=== PATIENT | male | born 1950 | race African-American/Black ===

== ENCOUNTER → 2016-05-14 | Outpatient (CLI) | payer MEDICARE, OTHER ==
[2016-05-14 12:08] LABS: HEMATOCRIT 29.4 % (37.9-51.0); HGB HCT DIFFERENCE 0.6; MEAN CORPUSCULAR HEMOGLOBIN 33.4 pg (27.0-33.4); MEAN CORPUSCULAR VOLUME 98 fl (80-97); RED BLOOD COUNT 2.99 10^6/uL (4.35-5.55); RED CELL DISTRIBUTION WIDTH 15.8 % (11.5-14.0)
[2016-05-14 12:42] LABS: APPEARANCE,URINE CLEAR; BILIRUBIN,URINE NEGATIVE (NEGATIVE); GLUCOSE, URINE NEGATIVE (NEGATIVE); KETONES,URINE NEGATIVE (NEGATIVE); LEUKOCYTE ESTERASE,URINE NEGATIVE (NEGATIVE); NITRITE,URINE NEGATIVE (NEGATIVE); PROTEIN,URINE NEGATIVE (NEGATIVE); URINE SPECIFIC GRAVITY 1.013; UROBILINOGEN,URINE NEGATIVE mg/dL (<2.0)
[2016-05-14 12:46] LABS: ANION GAP 14 (5-19); BLOOD UREA NITROGEN 33 mg/dL (7-20); CALCIUM 8.6 mg/dL (8.4-10.2); CARBON DIOXIDE 27 mmol/L (22-30); CHLORIDE 105 mmol/L (98-107); GLUCOSE 86 mg/dL (75-110); POTASSIUM 4.7 mmol/L (3.6-5.0); SODIUM 145.6 mmol/L (137-145)
== END ==
LOC: OD 10:22
PROVIDERS: ATTEND Internal Medicine Nephrology
DX: I12.9 Hypertensive chronic kidney disease with stage 1 through stage 4 chronic kidney disease, or unspecified chronic kidney disease (principal); N18.4 Chronic kidney disease, stage 4 (severe); D64.9 Anemia, unspecified
CPT/HCPCS: 36415; 80048; 81001; 83970; 84100; 85027

== ENCOUNTER → 2016-10-15 | Outpatient (CLI) | payer MEDICARE, OTHER ==
[2016-10-15 11:02] LABS: APPEARANCE,URINE CLEAR; BILIRUBIN,URINE NEGATIVE (NEGATIVE); GLUCOSE, URINE NEGATIVE (NEGATIVE); KETONES,URINE NEGATIVE (NEGATIVE); LEUKOCYTE ESTERASE,URINE NEGATIVE (NEGATIVE); NITRITE,URINE NEGATIVE (NEGATIVE); PROTEIN,URINE NEGATIVE (NEGATIVE); URINE SPECIFIC GRAVITY 1.011; UROBILINOGEN,URINE NEGATIVE mg/dL (<2.0)
[2016-10-15 11:03] LABS: HEMATOCRIT 27.1 % (37.9-51.0); HEMOGLOBIN 9.1 g/dL (13.5-17.0); HGB HCT DIFFERENCE 0.2; MEAN CORPUSCULAR HEMOGLOBIN 33.8 pg (27.0-33.4); MEAN CORPUSCULAR HGB CONC 33.5 g/dL (32.0-36.0); MEAN CORPUSCULAR VOLUME 101 fl (80-97); RED BLOOD COUNT 2.68 10^6/uL (4.35-5.55); RED CELL DISTRIBUTION WIDTH 15.9 % (11.5-14.0); WHITE BLOOD COUNT 7.6 10^3/uL (4.0-10.5)
[2016-10-15 11:14] LABS: ANION GAP 13 (5-19); BLOOD UREA NITROGEN 36 mg/dL (7-20); CALCIUM 9.2 mg/dL (8.4-10.2); CARBON DIOXIDE 20 mmol/L (22-30); CHLORIDE 110 mmol/L (98-107); CREATININE RESULT 2.67 mg/dL (0.52-1.25); GLUCOSE 93 mg/dL (75-110); SODIUM 143.3 mmol/L (137-145)
[2016-10-16 09:47] LABS: PTH INTACT 71 pg/mL (15-65)
[2016-10-17 16:39] LABS: ALBUMIN 2 3.7 g/dL (2.9-4.4); ALPHA-1-GLOBULIN 2 0.2 g/dL (0.0-0.4); GAMMA GLOBULIN 1.9 g/dL (0.4-1.8); PROTEIN TOTAL SERUM 7.4 g/dL (6.0-8.5)
== END ==
LOC: OD 09:44
PROVIDERS: ATTEND Internal Medicine Nephrology
DX: D64.9 Anemia, unspecified (principal); N18.4 Chronic kidney disease, stage 4 (severe); E87.5 Hyperkalemia
CPT/HCPCS: 36415; 80048; 81001; 82728; 83540; 83550; 83970; 84100; 84165; 85027

== ENCOUNTER → 2017-01-28 | Outpatient (CLI) | payer MEDICARE, OTHER ==
[2017-01-28 10:13] LABS: HEMATOCRIT 27.7 % (37.9-51.0); HEMOGLOBIN 9.6 g/dL (13.5-17.0); HGB HCT DIFFERENCE 1.1; MEAN CORPUSCULAR HEMOGLOBIN 35.2 pg (27.0-33.4); MEAN CORPUSCULAR HGB CONC 34.6 g/dL (32.0-36.0); MEAN CORPUSCULAR VOLUME 102 fl (80-97); RED BLOOD COUNT 2.73 10^6/uL (4.35-5.55); RED CELL DISTRIBUTION WIDTH 16.3 % (11.5-14.0); WHITE BLOOD COUNT 8.5 10^3/uL (4.0-10.5)
[2017-01-28 10:39] LABS: ANION GAP 19 (5-19); BLOOD UREA NITROGEN 37 mg/dL (7-20); CALCIUM 8.7 mg/dL (8.4-10.2); CARBON DIOXIDE 17 mmol/L (22-30); CHLORIDE 110 mmol/L (98-107); CREATININE RESULT 2.68 mg/dL (0.52-1.25); GLUCOSE 105 mg/dL (75-110); PHOSPHORUS 2.8 mg/dL (2.5-4.5); POTASSIUM 4.6 mmol/L (3.6-5.0); SODIUM 145.8 mmol/L (137-145)
== END ==
LOC: OD 09:21
PROVIDERS: ATTEND Internal Medicine Nephrology
DX: I12.9 Hypertensive chronic kidney disease with stage 1 through stage 4 chronic kidney disease, or unspecified chronic kidney disease (principal); N18.4 Chronic kidney disease, stage 4 (severe); D64.9 Anemia, unspecified; E87.5 Hyperkalemia
CPT/HCPCS: 36415; 80048; 83970; 84100; 85027

== ENCOUNTER → 2017-02-15 | Outpatient (CLI) | payer MEDICARE, OTHER ==
[2017-02-15 12:37] LABS: HEMATOCRIT 25.6 % (37.9-51.0); HGB HCT DIFFERENCE 1.4; MEAN CORPUSCULAR HEMOGLOBIN 35.9 pg (27.0-33.4); MEAN CORPUSCULAR HGB CONC 35.3 g/dL (32.0-36.0); MEAN CORPUSCULAR VOLUME 102 fl (80-97); RED BLOOD COUNT 2.52 10^6/uL (4.35-5.55); RED CELL DISTRIBUTION WIDTH 16.3 % (11.5-14.0); WHITE BLOOD COUNT 7.2 10^3/uL (4.0-10.5)
== END ==
LOC: OD 11:41
PROVIDERS: ATTEND Internal Medicine Nephrology
DX: N18.4 Chronic kidney disease, stage 4 (severe) (principal); D64.9 Anemia, unspecified
CPT/HCPCS: 36415; 82728; 83540; 83550; 85027

== ENCOUNTER → 2017-04-09 | Outpatient (CLI) | payer MEDICARE, OTHER ==
[2017-04-09 13:35] LABS: HEMATOCRIT 28.1 % (37.9-51.0); HEMOGLOBIN 9.9 g/dL (13.5-17.0); MEAN CORPUSCULAR HEMOGLOBIN 36.4 pg (27.0-33.4); MEAN CORPUSCULAR HGB CONC 35.2 g/dL (32.0-36.0); MEAN CORPUSCULAR VOLUME 103 fl (80-97); PLATELET COUNT 384 10^3/uL (150-450); RED BLOOD COUNT 2.72 10^6/uL (4.35-5.55); WHITE BLOOD COUNT 5.9 10^3/uL (4.0-10.5)
[2017-04-09 13:50] LABS: ANION GAP 11 (5-19); BLOOD UREA NITROGEN 28 mg/dL (7-20); CALCIUM 9.2 mg/dL (8.4-10.2); CARBON DIOXIDE 27 mmol/L (22-30); CHLORIDE 112 mmol/L (98-107); GLUCOSE 93 mg/dL (75-110); IRON(TIBC) 122.2 ug/dL (49-181); POTASSIUM 4.7 mmol/L (3.6-5.0); SODIUM 150.3 mmol/L (137-145)
== END ==
LOC: OD 13:02
PROVIDERS: ATTEND Internal Medicine Nephrology
DX: I12.9 Hypertensive chronic kidney disease with stage 1 through stage 4 chronic kidney disease, or unspecified chronic kidney disease (principal); N18.3 Chronic kidney disease, stage 3 (moderate); D64.9 Anemia, unspecified; E87.5 Hyperkalemia
CPT/HCPCS: 36415; 80048; 82728; 83540; 83550; 83970; 84100; 85027

== ENCOUNTER → 2017-06-19 | Outpatient (CLI) | payer MEDICARE, OTHER ==
[2017-06-19 11:05] LABS: HEMATOCRIT 26.8 % (37.9-51.0); HEMOGLOBIN 9.3 g/dL (13.5-17.0); MEAN CORPUSCULAR HEMOGLOBIN 35.9 pg (27.0-33.4); MEAN CORPUSCULAR HGB CONC 34.7 g/dL (32.0-36.0); MEAN CORPUSCULAR VOLUME 104 fl (80-97); PLATELET COUNT 423 10^3/uL (150-450); RED BLOOD COUNT 2.58 10^6/uL (4.35-5.55); RED CELL DISTRIBUTION WIDTH 15.9 % (11.5-14.0); WHITE BLOOD COUNT 6.8 10^3/uL (4.0-10.5)
[2017-06-19 11:23] LABS: ANION GAP 13 (5-19); BLOOD UREA NITROGEN 22 mg/dL (7-20); CARBON DIOXIDE 23 mmol/L (22-30); CHLORIDE 107 mmol/L (98-107); GLUCOSE 92 mg/dL (75-110); PHOSPHORUS 2.6 mg/dL (2.5-4.5); POTASSIUM 5.1 mmol/L (3.6-5.0); SODIUM 143.4 mmol/L (137-145)
== END ==
LOC: OD 10:02
PROVIDERS: ATTEND Internal Medicine Nephrology
DX: I12.9 Hypertensive chronic kidney disease with stage 1 through stage 4 chronic kidney disease, or unspecified chronic kidney disease (principal); N18.4 Chronic kidney disease, stage 4 (severe); E87.5 Hyperkalemia; D64.9 Anemia, unspecified
CPT/HCPCS: 36415; 80048; 83970; 84100; 85027

== ENCOUNTER → 2017-07-08 | Outpatient (CLI) | payer MEDICARE, OTHER ==
[2017-07-08 11:45] LABS: HEMATOCRIT 25.5 % (37.9-51.0); HEMOGLOBIN 8.7 g/dL (13.5-17.0); MEAN CORPUSCULAR HEMOGLOBIN 35.1 pg (27.0-33.4); MEAN CORPUSCULAR HGB CONC 33.9 g/dL (32.0-36.0); MEAN CORPUSCULAR VOLUME 103 fl (80-97); PLATELET COUNT 311 10^3/uL (150-450); RED BLOOD COUNT 2.47 10^6/uL (4.35-5.55); RED CELL DISTRIBUTION WIDTH 16.4 % (11.5-14.0)
[2017-07-08 12:11] LABS: IRON(TIBC) 74.4 ug/dL (49-181)
== END ==
LOC: OD 10:52
PROVIDERS: ATTEND Internal Medicine Nephrology
DX: D64.9 Anemia, unspecified (principal); N18.4 Chronic kidney disease, stage 4 (severe)
CPT/HCPCS: 36415; 82728; 83540; 83550; 85027

== ENCOUNTER → 2017-08-14 | Outpatient (CLI) | payer MEDICARE, OTHER ==
[2017-08-14 11:15] LABS: HEMATOCRIT 25.2 % (37.9-51.0); HEMOGLOBIN 8.7 g/dL (13.5-17.0); MEAN CORPUSCULAR HGB CONC 34.4 g/dL (32.0-36.0); MEAN CORPUSCULAR VOLUME 102 fl (80-97); PLATELET COUNT 367 10^3/uL (150-450); RED BLOOD COUNT 2.49 10^6/uL (4.35-5.55); RED CELL DISTRIBUTION WIDTH 16.1 % (11.5-14.0); WHITE BLOOD COUNT 6.8 10^3/uL (4.0-10.5)
[2017-08-14 11:29] LABS: APPEARANCE,URINE CLEAR; BILIRUBIN,URINE NEGATIVE (NEGATIVE); COLOR,URINE YELLOW; GLUCOSE, URINE NEGATIVE (NEGATIVE); KETONES,URINE NEGATIVE (NEGATIVE); LEUKOCYTE ESTERASE,URINE NEGATIVE (NEGATIVE); NITRITE,URINE NEGATIVE (NEGATIVE); PROTEIN,URINE NEGATIVE (NEGATIVE); URINE SPECIFIC GRAVITY 1.013
[2017-08-14 11:45] LABS: ANION GAP 12 (5-19); BLOOD UREA NITROGEN 34 mg/dL (7-20); CALCIUM 9.3 mg/dL (8.4-10.2); CARBON DIOXIDE 25 mmol/L (22-30); CHLORIDE 111 mmol/L (98-107); GLUCOSE 98 mg/dL (75-110); IRON(TIBC) 116.8 ug/dL (49-181); PHOSPHORUS 2.8 mg/dL (2.5-4.5); POTASSIUM 4.7 mmol/L (3.6-5.0); SODIUM 148.2 mmol/L (137-145)
[2017-08-14 12:09] LABS: UR PRO/CREAT RATIO RESULT 0.2 mg/mg (0.0-0.2); URINE CREATININE 118.5 mg/dL (22-328); URINE PROTEIN 27.1 mg/dL (<12)
== END ==
LOC: OD 10:40
PROVIDERS: ATTEND Internal Medicine Nephrology
DX: E87.5 Hyperkalemia (principal); D64.9 Anemia, unspecified; I12.9 Hypertensive chronic kidney disease with stage 1 through stage 4 chronic kidney disease, or unspecified chronic kidney disease; N18.3 Chronic kidney disease, stage 3 (moderate)
CPT/HCPCS: 36415; 80048; 81001; 82570; 82728; 83540; 83550; 83970; 84100; 84156; 85027

== ENCOUNTER → 2017-11-15 | Outpatient (CLI) | payer MEDICARE, OTHER ==
[2017-11-15 10:06] LABS: HEMATOCRIT 21.8 % (37.9-51.0); MEAN CORPUSCULAR HEMOGLOBIN 35.2 pg (27.0-33.4); MEAN CORPUSCULAR HGB CONC 34.9 g/dL (32.0-36.0); MEAN CORPUSCULAR VOLUME 101 fl (80-97); PLATELET COUNT 386 10^3/uL (150-450); RED BLOOD COUNT 2.16 10^6/uL (4.35-5.55); RED CELL DISTRIBUTION WIDTH 17.5 % (11.5-14.0); WHITE BLOOD COUNT 6.4 10^3/uL (4.0-10.5)
[2017-11-15 10:11] LABS: APPEARANCE,URINE CLEAR; BILIRUBIN,URINE NEGATIVE (NEGATIVE); COLOR,URINE STRAW; GLUCOSE, URINE NEGATIVE (NEGATIVE); KETONES,URINE NEGATIVE (NEGATIVE); LEUKOCYTE ESTERASE,URINE NEGATIVE (NEGATIVE); NITRITE,URINE NEGATIVE (NEGATIVE); PROTEIN,URINE NEGATIVE (NEGATIVE); URINE SPECIFIC GRAVITY 1.011; UROBILINOGEN,URINE NEGATIVE mg/dL (<2.0)
[2017-11-15 10:22] LABS: HEMOGLOBIN 7.6 g/dL (13.5-17.0)
[2017-11-15 10:39] LABS: ANION GAP 14 (5-19); BLOOD UREA NITROGEN 24 mg/dL (7-20); CALCIUM 8.8 mg/dL (8.4-10.2); CARBON DIOXIDE 21 mmol/L (22-30); CHLORIDE 110 mmol/L (98-107); GLUCOSE 91 mg/dL (75-110); POTASSIUM 4.8 mmol/L (3.6-5.0); SODIUM 144.9 mmol/L (137-145)
== END ==
LOC: OD 09:07
PROVIDERS: ATTEND Physician Assistant Medical
DX: I12.9 Hypertensive chronic kidney disease with stage 1 through stage 4 chronic kidney disease, or unspecified chronic kidney disease (principal); N18.4 Chronic kidney disease, stage 4 (severe); N25.0 Renal osteodystrophy; D64.9 Anemia, unspecified
CPT/HCPCS: 36415; 80048; 81001; 85027

== ENCOUNTER → 2017-12-04 | Outpatient (CLI) | payer MEDICARE, OTHER ==
[2017-12-04 15:34] LABS: HEMATOCRIT 21.7 % (37.9-51.0); MEAN CORPUSCULAR HEMOGLOBIN 35.5 pg (27.0-33.4); MEAN CORPUSCULAR HGB CONC 34.6 g/dL (32.0-36.0); MEAN CORPUSCULAR VOLUME 103 fl (80-97); PLATELET COUNT 413 10^3/uL (150-450); RED BLOOD COUNT 2.12 10^6/uL (4.35-5.55); RED CELL DISTRIBUTION WIDTH 17.2 % (11.5-14.0); WHITE BLOOD COUNT 7.4 10^3/uL (4.0-10.5)
[2017-12-04 15:50] LABS: IRON(TIBC) 96.8 ug/dL (49-181)
[2017-12-04 16:15] LABS: HEMOGLOBIN 7.5 g/dL (13.5-17.0)
== END ==
LOC: OD 14:23
PROVIDERS: ATTEND Physician Assistant Medical
DX: N18.4 Chronic kidney disease, stage 4 (severe) (principal); D64.9 Anemia, unspecified; E87.5 Hyperkalemia
CPT/HCPCS: 36415; 82728; 83540; 83550; 85027

== ENCOUNTER → 2018-01-14 | Outpatient (CLI) | payer MEDICARE, OTHER ==
[2018-01-14 12:25] LABS: ANION GAP 9 (5-19); BLOOD UREA NITROGEN 17 mg/dL (7-20); CALCIUM 8.9 mg/dL (8.4-10.2); CARBON DIOXIDE 25 mmol/L (22-30); CHLORIDE 109 mmol/L (98-107); GLUCOSE 87 mg/dL (75-110); PHOSPHORUS 2.3 mg/dL (2.5-4.5); POTASSIUM 4.2 mmol/L (3.6-5.0); SODIUM 143.3 mmol/L (137-145)
[2018-01-14 12:43] LABS: APPEARANCE,URINE CLEAR; COLOR,URINE LIGHT YELLOW
[2018-01-14 12:44] LABS: ADD MANUAL MICROSCOPIC YES; BILIRUBIN,URINE NEGATIVE (NEGATIVE); GLUCOSE, URINE NEGATIVE (NEGATIVE); KETONES,URINE NEGATIVE (NEGATIVE); LEUKOCYTE ESTERASE,URINE NEGATIVE (NEGATIVE); NITRITE,URINE NEGATIVE (NEGATIVE); PROTEIN,URINE 30 mg/dL (NEGATIVE); UROBILINOGEN,URINE NEGATIVE mg/dL (<2.0)
[2018-01-14 12:45] LABS: BACTERIA,URINE TRACE /HPF
[2018-01-14 15:40] LABS: MEAN CORPUSCULAR HEMOGLOBIN 36.2 pg (27.0-33.4); MEAN CORPUSCULAR HGB CONC 35.1 g/dL (32.0-36.0); MEAN CORPUSCULAR VOLUME 103 fl (80-97); PLATELET COUNT 384 10^3/uL (150-450); RED BLOOD COUNT 2.03 10^6/uL (4.35-5.55); RED CELL DISTRIBUTION WIDTH 18.2 % (11.5-14.0); WHITE BLOOD COUNT 8.6 10^3/uL (4.0-10.5)
[2018-01-14 15:42] LABS: HEMOGLOBIN 7.4 g/dL (13.5-17.0)
== END ==
LOC: OD 11:12
PROVIDERS: ATTEND Physician Assistant Medical
DX: I12.9 Hypertensive chronic kidney disease with stage 1 through stage 4 chronic kidney disease, or unspecified chronic kidney disease (principal); N18.4 Chronic kidney disease, stage 4 (severe); D64.9 Anemia, unspecified; E87.5 Hyperkalemia
CPT/HCPCS: 36415; 80048; 81001; 83970; 84100; 85025; 85027

== ENCOUNTER 2018-07-29 17:09 | Emergency (ER) | payer MEDICARE ==
[2018-07-29] MEDS ORDERED: NORMAL SALINE 250 ML IV PRN (18:18)
--- NOTE | 2018-07-29 18:23 | ER Document Report ---
ED Medical Screen (RME) - General Chief Complaint: Abnormal Lab Results Stated Complaint: ABNORMAL LABS Time Seen by Provider: 07/29/18 17:57 Primary Care Provider: ARNIE RUTLEDGE PA-C [Primary Care Provider] - Follow up as needed Mode of Arrival: Ambulatory Information source: Patient TRAVEL OUTSIDE OF THE [place] IN LAST 30 DAYS: No - HPI Patient complains to provider of: LOW HEMOGLOBIN Notes: 07/29/18 18:19 Patient is here with complaints of low hemoglobin. The patient has a history of chronic renal failure. He is not on dialysis. No history of congestive heart failure. He has a history of anemia. He had labs drawn today and was noted to have a hemoglobin of 6 and was told to come to the emergency department for evaluation. The patient denies any active bleeding. In reviewing his records, the patient typically has a hemoglobin about 7-1/2. He denies any chest pain, shortness of breath, dizziness, syncope. He states that he feels completely fine at this time. Exam Nontoxic-appearing, no distress. Lungs clear and equal throughout. Heart sounds normal. Plan Patient has lab work in the system from earlier today. I have ordered a type and screen, 2 units, transfuse. Case discussed with Dr. Escalona who agrees with plan. An initial examination was made on the patient as part of the triage process, and it was determined a more comprehensive evaluation was necessary. Initial labs were ordered and patient was transferred to another provider in the ED who assumed care and finished evaluation and plan. - Related Data Allergies/Adverse Reactions: No Known Allergies Allergy (Verified 10/05/12 17:24) Past Medical History - Past Medical History Cardiac Medical History: Reports: Hx Hypertension Renal/ Medical History: Denies: Hx Peritoneal Dialysis Past Surgical History: Reports: Hx Cholecystectomy Physical Exam - Vital signs Vitals: Temp Pulse Resp BP Pulse Ox 98.5 F 79 16 133/75 H 95 07/29/18 17:13 07/29/18 17:13 07/29/18 17:13 07/29/18 17:13 07/29/18 17:13 Course - Vital Signs Vital signs: Temp Pulse Resp BP Pulse Ox 98.5 F 79 16 133/75 H 95 07/29/18 17:13 07/29/18 17:13 07/29/18 17:13 07/29/18 17:13 07/29/18 17:13 Doctor's Discharge - Discharge Referrals: ARNIE RUTLEDGE PA-C [Primary Care Provider] - Follow up as needed
[2018-07-29 19:22] LABS: ABSOLUTE BASOPHILS # (AUTO) 0.1 10^3/uL (0.0-0.2); ABSOLUTE EOSINOPHILS # (AUTO) 0.2 10^3/uL (0.0-0.6); ABSOLUTE LYMPHOCYTES (AUTO) 3.4 10^3/uL (0.5-4.7); ABSOLUTE MONOCYTES (AUTO) 0.7 10^3/uL (0.1-1.4); ABSOLUTE NEUT (AUTO) 3.7 10^3/uL (1.7-8.2); EOSINOPHILS % (AUTO) 2.5 % (0-6); HEMATOCRIT 17.8 % (37.9-51.0); LYMPHOCYTES % (AUTO) 41.7 % (13-45); MEAN CORPUSCULAR HEMOGLOBIN 34.6 pg (27.0-33.4); MEAN CORPUSCULAR HGB CONC 34.6 g/dL (32.0-36.0); MEAN CORPUSCULAR VOLUME 100 fl (80-97); MONOCYTES % (AUTO) 8.6 % (3-13); PLATELET COUNT 400 10^3/uL (150-450); RED BLOOD COUNT 1.78 10^6/uL (4.35-5.55); RED CELL DISTRIBUTION WIDTH 29.1 % (11.5-14.0); SEGMENTED NEUTROPHILS % (AUTO) 46.2 % (42-78); TOTAL CELLS COUNTED % (AUTO) 100 %; WHITE BLOOD COUNT 8.1 10^3/uL (4.0-10.5)
[2018-07-29 19:25] LABS: HEMOGLOBIN 6.2 g/dL (13.5-17.0)
[2018-07-29 19:38] LABS: ANISOCYTOSIS 4+; OVALOCYTES SLIGHT; PLATELET COMMENT ADEQUATE; POIKILOCYTOSIS 1+; TARGET CELLS SLIGHT; TEAR DROP CELLS 1+
[2018-07-29 19:40] LABS: ANION GAP 9 (5-19); BLOOD UREA NITROGEN 32 mg/dL (7-20); CARBON DIOXIDE 22 mmol/L (22-30); CHLORIDE 108 mmol/L (98-107); GLUCOSE 86 mg/dL (75-110)
--- NOTE | 2018-07-29 19:51 | ER Document Report ---
ED General - General Chief Complaint: Abnormal Lab Results Stated Complaint: ABNORMAL LABS Time Seen by Provider: 07/29/18 17:57 Primary Care Provider: ARNIE RUTLEDGE PA-C [Primary Care Provider] - Follow up as needed Mode of Arrival: Ambulatory TRAVEL OUTSIDE OF THE [place] IN LAST 30 DAYS: No - HPI Notes: Patient is a 68-year-old male that presents to the emergency department for chief complaint of anemia. Patient has history of anemia from chronic renal insufficiency. He does see Dr. Hoff for his kidney failure. He is not currently on dialysis. Patient denies any black or bloody stools or history of bleeding. He denies ever requiring a blood transfusion in the past. He does get routine blood test to monitor his anemia and was told to come to the emergency room today for hemoglobin of 6. Patient denies any associated headache, vision changes, lightheadedness, palpitations, shortness of breath and syncope. He is in agreement with rec eiving blood transfusion. Patient currently states he is asymptomatic and feels normal. Past Medical History: CKD anemia of chronic disease Past Surgical History: Reviewed in chart Social History: Denies tobacco and alcohol use Family History: Reviewed and noncontributory for presenting illness Allergies: Reviewed, see documented allergy list. REVIEW OF SYSTEMS: CONSTITUTIONAL : No fever No chills No diaphoresis No recent illness EENT: No vision changes No congestion No sore throat CARDIOVASCULAR: No chest pain No palpitations RESPIRATORY: No shortness of breath No cough No difficulty breathing GASTROINTESTINAL: No abdominal pain No nausea No vomiting No diarrhea GENITOURINARY: No dysuria No hematuria No difficulty urinating MUSCULOSKELETAL: No back pain No leg pain No arm pain SKIN: No rashes No lesions LYMPHATIC: No swollen, enlarged glands. NEUROLOGICAL: No lightheadedness No headache No weakness No paresthesias PSYCHIATRIC: No anxiety No depression PHYSICAL EXAMINATION: Vital signs reviewed, nursing noted reviewed. GENERAL: Well-appearing, well-nourished and in no acute distress. HEAD: Atraumatic, normocephalic. EYES: Eyes appear normal, extraocular movements intact, sclera anicteric, conjunctiva are pale ENT: nares patent, oropharynx clear without exudates. Moist mucous membranes. NECK: Normal range of motion, supple without lymphadenopathy LUNGS: Breath sounds clear to auscultation bilaterally and equal. No wheezes rales or rhonchi. HEART: Regular rate and rhythm without murmurs ABDOMEN: Soft, nontender, normoactive bowel sounds. No rebound, guarding, or rigidity. No masses appreciated. EXTREMITIES: Nontender, good range of motion, no pitting or edema. NEUROLOGICAL: No focal neurological deficits. Moves all extremities spontaneously Motor and sensory grossly intact on exam. PSYCH: Normal mood, normal affect. SKIN: Warm, Dry, normal turgor, mildly pale - Related Data Allergies/Adverse Reactions: No Known Allergies Allergy (Verified 10/05/12 17:24) Past Medical History - General Information source: Patient - Social History Smoking Status: Unknown if Ever Smoked Family History: CAD Patient has suicidal ideation: No Patient has homicidal ideation: No - Past Medical History Cardiac Medical History: Reports: Hx Hypertension Renal/ Medical History: Denies: Hx Peritoneal Dialysis Past Surgical History: Reports: Hx Cholecystectomy Physical Exam - Vital signs Vitals: Temp Pulse Resp BP Pulse Ox 98.5 F 79 16 133/75 H 95 07/29/18 17:13 07/29/18 17:13 07/29/18 17:13 07/29/18 17:13 07/29/18 17:13 Course - Re-evaluation Re-evalutation: 07/29/18 19:49 Vitals reviewed. Nursing notes reviewed. Repeat hemoglobin is 6.2. Patient has baseline renal insufficiency with a creatinine of 2.4. He has no elec trolyte derangements or fluid overload to require elevating him to dialysis. Patient will be ordered 2 units of packed red blood cells for his acute anemia. He has no active bleeding and is otherwise asymptomatic and hemodynamically stable. Plan to discharge patient after blood transfusion and to follow with his primary care provider tomorrow. Laboratory 07/29/18 07/29/18 07/29/18 18:43 18:43 18:43 WBC 8.1 RBC 1.78 L Hgb 6.2 L Hct 17.8 L MCV 100 H MCH 34.6 H MCHC 34.6 RDW 29.1 H Plt Count 400 Seg Neutrophils % 46.2 Lymphocytes % 41.7 Monocytes % 8.6 Eosinophils % 2.5 Basophils % 1.0 Absolute Neutrophils 3.7 Absolute Lymphocytes 3.4 Absolute Monocytes 0.7 Absolute Eosinophils 0.2 Absolute Basophils 0.1 Platelet Comment ADEQUATE Poikilocytosis 1+ Anisocytosis 4+ Macrocytosis SLIGHT Target Cells SLIGHT Tear Drop Cells 1+ Ovalocytes SLIGHT Sodium 139.0 Potassium 5.0 Chloride 108 H Carbon Dioxide 22 Anion Gap 9 BUN 32 H Creatinine 2.41 H Est GFR ( Amer) 32 L Est GFR (Non-Af Amer) 27 L Glucose 86 Calcium 9.0 Blood Type O POSITIVE Antibody Screen NEGATIVE Crossmatch See Detail - Vital Signs Vital signs: Temp Pulse Resp BP Pulse Ox 98.5 F 79 16 133/75 H 95 07/29/18 17:13 07/29/18 17:13 07/29/18 17:13 07/29/18 17:13 07/29/18 17:13 - Laboratory Result Diagrams: 07/29/18 18:43 07/29/18 18:43 Laboratory results interpreted by me: 07/29/18 07/29/18 07/29/18 18:43 18:43 18:43 RBC 1.78 L Hgb 6.2 L Hct 17.8 L MCV 100 H MCH 34.6 H RDW 29.1 H Chloride 108 H BUN 32 H Creatinine 2.41 H Est GFR ( Amer) 32 L Est GFR (Non-Af Amer) 27 L Crossmatch See Detail Discharge - Discharge Clinical Impression: Anemia Qualifiers: Anemia type: other cause Other causes of anemia: other cause, not classified Qualified Code(s): D64.89 - Other specified anemias Condition: Stable Disposition: HOME, SELF-CARE Instructions: Anemia ([facility]) Additional Instructions: Please return to the emergency department if you have any worsening, or concern of your symptoms. Please return to the emergency department if you develop chest pain, difficulty breathing, severe abdominal pain, or ongoing vomiting. Please follow-up with your primary care physician in 2-3 days and any other recommended physicians. If prescribed, take all medications as directed. If you have any questions or concerns do not hesitate to return the emergency department for evaluation. Referrals: ARNIE RUTLEDGE PA-C [Primary Care Provider] - Follow up tomorrow
[2018-07-30 00:35] VITALS: BP 127/82
== END 2018-07-30 00:36 | disposition home or self-care (01) ==
LOC: ER 17:09
DX: D64.89 Other specified anemias (principal)
CPT/HCPCS: 99284; 86900; 86901; 36415; 36430; 86850; 84100; 85025; 85027; 80048; 81001; 86920; 83970; P9016

== ENCOUNTER → 2018-07-29 | Outpatient (CLI) | payer MEDICARE, OTHER ==
[2018-07-29 16:19] LABS: HEMATOCRIT 17.4 % (37.9-51.0); MEAN CORPUSCULAR HGB CONC 34.5 g/dL (32.0-36.0); MEAN CORPUSCULAR VOLUME 98 fl (80-97); PLATELET COUNT 382 10^3/uL (150-450); RED BLOOD COUNT 1.77 10^6/uL (4.35-5.55); RED CELL DISTRIBUTION WIDTH 28.7 % (11.5-14.0); WHITE BLOOD COUNT 7.5 10^3/uL (4.0-10.5)
[2018-07-29 16:28] LABS: APPEARANCE,URINE CLEAR; BILIRUBIN,URINE NEGATIVE (NEGATIVE); COLOR,URINE STRAW; GLUCOSE, URINE NEGATIVE (NEGATIVE); KETONES,URINE NEGATIVE (NEGATIVE); LEUKOCYTE ESTERASE,URINE NEGATIVE (NEGATIVE); NITRITE,URINE NEGATIVE (NEGATIVE); PROTEIN,URINE NEGATIVE (NEGATIVE); URINE SPECIFIC GRAVITY 1.009; UROBILINOGEN,URINE NEGATIVE mg/dL (<2.0)
[2018-07-29 16:39] LABS: ANION GAP 9 (5-19); BLOOD UREA NITROGEN 30 mg/dL (7-20); CALCIUM 8.8 mg/dL (8.4-10.2); CARBON DIOXIDE 21 mmol/L (22-30); CHLORIDE 108 mmol/L (98-107); GLUCOSE 126 mg/dL (75-110); PHOSPHORUS 2.8 mg/dL (2.5-4.5); POTASSIUM 4.7 mmol/L (3.6-5.0); SODIUM 137.5 mmol/L (137-145)
== END ==
LOC: OD 15:48
PROVIDERS: ATTEND Physician Assistant Medical
DX: I12.9 Hypertensive chronic kidney disease with stage 1 through stage 4 chronic kidney disease, or unspecified chronic kidney disease (principal); N18.4 Chronic kidney disease, stage 4 (severe); D64.9 Anemia, unspecified; E87.5 Hyperkalemia
CPT/HCPCS: 36415; 80048; 81001; 83970; 84100; 85027

== ENCOUNTER 2018-08-25 17:35 | Outpatient (CLI) | payer MEDICARE, OTHER ==
[2018-08-25 17:08] LABS: HEMATOCRIT 21.1 % (37.9-51.0); MEAN CORPUSCULAR HEMOGLOBIN 32.5 pg (27.0-33.4); MEAN CORPUSCULAR HGB CONC 33.7 g/dL (32.0-36.0); MEAN CORPUSCULAR VOLUME 97 fl (80-97); PLATELET COUNT 398 10^3/uL (150-450); RED BLOOD COUNT 2.18 10^6/uL (4.35-5.55); RED CELL DISTRIBUTION WIDTH 26.5 % (11.5-14.0); WHITE BLOOD COUNT 6.2 10^3/uL (4.0-10.5)
[2018-08-25 17:24] LABS: HEMOGLOBIN 7.1 g/dL (13.5-17.0)
[~2018-08-25 17:35] MED LIST: ACETAMINOPHEN 325 MG TABLET PO PRN; DIPHENHYDRAMINE HCL 25 MG CAPSULE PO PRN; FUROSEMIDE INJ/PF 20 MG/2 ML SDV IV PRN
[2018-08-26 03:22] VITALS: BP 116/70
[2018-08-26 06:26] LABS: HEMATOCRIT 26.8 % (37.9-51.0); HEMOGLOBIN 9.1 g/dL (13.5-17.0); MEAN CORPUSCULAR HEMOGLOBIN 31.8 pg (27.0-33.4); MEAN CORPUSCULAR HGB CONC 33.9 g/dL (32.0-36.0); MEAN CORPUSCULAR VOLUME 94 fl (80-97); PLATELET COUNT 365 10^3/uL (150-450); RED BLOOD COUNT 2.85 10^6/uL (4.35-5.55); WHITE BLOOD COUNT 5.4 10^3/uL (4.0-10.5)
== END 2018-08-26 06:15 | disposition home or self-care (01) ==
LOC: II 17:35 → 2N 17:37 → II 08-26 06:15
PROVIDERS: ATTEND Internal Medicine Nephrology
PROC: 30233N1 Transfusion of Nonautologous Red Blood Cells into Peripheral Vein, Percutaneous Approach (ICD-10-PCS; principal; 2018-08-25)
PROC: 30233N1 Transfusion of Nonautologous Red Blood Cells into Peripheral Vein, Percutaneous Approach (ICD-10-PCS; 2018-08-26)
PROC: 3E033GC Introduction of Other Therapeutic Substance into Peripheral Vein, Percutaneous Approach (ICD-10-PCS; 2018-08-26)
DX: N18.4 Chronic kidney disease, stage 4 (severe) (principal); D63.1 Anemia in chronic kidney disease
CPT/HCPCS: 86900; 86901; 36415; 36430; 86850; 85027; 86920; P9016; A9270 ×2; J1940; 96374

== ENCOUNTER → 2018-09-09 | Outpatient (CLI) | payer MEDICARE, OTHER | LOC: OD 13:55 | PROVIDERS: ATTEND Physician Assistant Medical | DX: D63.1 Anemia in chronic kidney disease (principal); N18.9 Chronic kidney disease, unspecified | CPT/HCPCS: 36415; 82728; 83540; 83550 ==

== ENCOUNTER → 2018-11-12 | Outpatient (CLI) | payer MEDICARE, OTHER ==
[2018-11-12 10:50] LABS: HEMATOCRIT 24.7 % (37.9-51.0); HEMOGLOBIN 8.3 g/dL (13.5-17.0); MEAN CORPUSCULAR HEMOGLOBIN 32.4 pg (27.0-33.4); MEAN CORPUSCULAR HGB CONC 33.7 g/dL (32.0-36.0); MEAN CORPUSCULAR VOLUME 96 fl (80-97); PLATELET COUNT 333 10^3/uL (150-450); RED BLOOD COUNT 2.56 10^6/uL (4.35-5.55); RED CELL DISTRIBUTION WIDTH 21.4 % (11.5-14.0); WHITE BLOOD COUNT 5.4 10^3/uL (4.0-10.5)
== END ==
LOC: OD 09:37
PROVIDERS: ATTEND Internal Medicine Nephrology
DX: N18.4 Chronic kidney disease, stage 4 (severe) (principal); D63.1 Anemia in chronic kidney disease
CPT/HCPCS: 36415; 85027

== ENCOUNTER → 2018-11-25 | Outpatient (CLI) | payer MEDICARE, OTHER ==
[2018-11-25 10:40] LABS: HEMATOCRIT 22.6 % (37.9-51.0); MEAN CORPUSCULAR HEMOGLOBIN 32.4 pg (27.0-33.4); MEAN CORPUSCULAR HGB CONC 33.8 g/dL (32.0-36.0); MEAN CORPUSCULAR VOLUME 96 fl (80-97); PLATELET COUNT 387 10^3/uL (150-450); RED BLOOD COUNT 2.35 10^6/uL (4.35-5.55); RED CELL DISTRIBUTION WIDTH 22.3 % (11.5-14.0); WHITE BLOOD COUNT 4.9 10^3/uL (4.0-10.5)
[2018-11-25 10:52] LABS: APPEARANCE,URINE CLEAR; BILIRUBIN,URINE NEGATIVE (NEGATIVE); COLOR,URINE YELLOW; GLUCOSE, URINE NEGATIVE (NEGATIVE); KETONES,URINE NEGATIVE (NEGATIVE); LEUKOCYTE ESTERASE,URINE NEGATIVE (NEGATIVE); NITRITE,URINE NEGATIVE (NEGATIVE); PROTEIN,URINE 30 mg/dL (NEGATIVE); URINE SPECIFIC GRAVITY 1.015; UROBILINOGEN,URINE NEGATIVE mg/dL (<2.0)
[2018-11-25 10:53] LABS: HEMOGLOBIN 7.6 g/dL (13.5-17.0)
[2018-11-25 10:56] LABS: ANION GAP 11 (5-19); BLOOD UREA NITROGEN 27 mg/dL (7-20); CALCIUM 9.2 mg/dL (8.4-10.2); CARBON DIOXIDE 23 mmol/L (22-30); CHLORIDE 108 mmol/L (98-107); GLUCOSE 92 mg/dL (75-110); POTASSIUM 4.6 mmol/L (3.6-5.0)
== END ==
LOC: OD 09:54
PROVIDERS: ATTEND Physician Assistant Medical
DX: N18.3 Chronic kidney disease, stage 3 (moderate) (principal); I12.9 Hypertensive chronic kidney disease with stage 1 through stage 4 chronic kidney disease, or unspecified chronic kidney disease; R60.9 Edema, unspecified; E87.6 Hypokalemia; D63.1 Anemia in chronic kidney disease; E87.2 Acidosis
CPT/HCPCS: 36415; 80048; 81001; 83970; 84100; 85027

== ENCOUNTER → 2018-12-03 | Outpatient (CLI) | payer MEDICARE, OTHER ==
[2018-12-03 16:33] LABS: IRON(TIBC) 146.4 ug/dL (49-181)
== END ==
LOC: OD 15:28
PROVIDERS: ATTEND Internal Medicine Nephrology
DX: D63.1 Anemia in chronic kidney disease (principal)
CPT/HCPCS: 36415; 82728; 83540; 83550

== ENCOUNTER 2018-12-17 15:13 | Emergency (ER) | payer MEDICARE, OTHER ==
--- NOTE | 2018-12-17 15:35 | ER Document Report ---
ED Medical Screen (RME) - General Chief Complaint: Abnormal Lab Results Stated Complaint: ABNORMAL LABS Time Seen by Provider: 12/17/18 15:29 Primary Care Provider: Kelly HOFF MD [Primary Care Provider] - Follow up as needed Mode of Arrival: Ambulatory Information source: Patient Notes: Patient presents to the emergency department with reports that he was sent over from Dr. Hoff's office for a blood transfusion. He reports he saw him this morning they pricked his finger since that that was not good and they sent him for labs. After the labs were drawn they sent him to the hospital reporting that he needed a blood transfusion. Patient reports he has had multiple blood transfusions in the past. Denies history of dialysis. Reports he had a heart attack back in 2012 since then he has had issues with his blood. Reports he has had a history of a bleeding ulcer in the past. He denies black stools. He denies vomiting. I have greeted and performed a rapid initial assessment of this patient. A comprehensive ED assessment and evaluation of the patient, analysis of test results and completion of the medical decision making process will be conducted by additional ED providers. Dictation of this chart was performed using voice recognition software; therefore, there may be some unintended grammatical errors. TRAVEL OUTSIDE OF THE [place] IN LAST 30 DAYS: No - Related Data Allergies/Adverse Reactions: No Known Allergies Allergy (Verified 12/17/18 15:15) Past Medical History - Social History Chew tobacco use (# tins/day): No Frequency of alcohol use: None Drug Abuse: None - Past Medical History Cardiac Medical History: Reports: Hx Hypertension Renal/ Medical History: Denies: Hx Peritoneal Dialysis Past Surgical History: Reports: Hx Cholecystectomy Physical Exam - Vital signs Vitals: Temp Pulse Resp BP Pulse Ox 98.7 F 72 16 124/67 95 12/17/18 15:21 12/17/18 15:21 12/17/18 15:21 12/17/18 15:21 12/17/18 15:21 Course - Vital Signs Vital signs: Temp Pulse Resp BP Pulse Ox 98.7 F 72 16 124/67 95 12/17/18 15:21 12/17/18 15:21 12/17/18 15:21 12/17/18 15:21 12/17/18 15:21 Doctor's Discharge - Discharge Referrals: Kelly HOFF MD [Primary Care Provider] - Follow up as needed
--- NOTE | 2018-12-17 16:41 | ER Document Report ---
ED General - General Chief Complaint: Abnormal Lab Results Stated Complaint: ABNORMAL LABS Time Seen by Provider: 12/17/18 15:29 Primary Care Provider: NATA CANTU MD [ACTIVE STAFF] - Follow up as needed Kelly HOFF MD [Primary Care Provider] - Follow up tomorrow Mode of Arrival: Ambulatory TRAVEL OUTSIDE OF THE [place] IN LAST 30 DAYS: No - HPI Notes: Patient is a 68-year-old male with a history of CKD, hypertension, CAD (not on any blood thinning medication), anemia requiring blood transfusions in the past who presents per the direction of Dr. Hoff's office for blood transfusion as he had a low hemoglobin in their office today. Patient states that he feels "fine" otherwise. He is able to eat and drink without difficulty. He is urinating normally and having normal bowel movements. He has not noticed any black or red in his stool. Denies drug allergies. No other concerns or complaints. Denies any headache, fever, URI, sore throat, chest pain, palpitations, syncope, cough, shortness of breath, wheeze, dyspnea, abdominal pain, nausea/vomiting/diarrhea, urinary retention, dysuria, hematuria, or rash. - Related Data Allergies/Adverse Reactions: No Known Allergies Allergy (Verified 12/17/18 15:15) Past Medical History - General Information source: Patient - Social History Smoking Status: Never Smoker Chew tobacco use (# tins/day): No Frequency of alcohol use: None Drug Abuse: None Family History: Reviewed & Not Pertinent, CAD Patient has suicidal ideation: No Patient has homicidal ideation: No - Past Medical History Cardiac Medical History: Reports: Hx Hypertension Renal/ Medical History: Denies: Hx Peritoneal Dialysis Past Surgical History: Reports: Hx Cholecystectomy Review of Systems - Review of Systems -: Yes All other systems reviewed and negative Physical Exam - Vital signs Vitals: Temp Pulse Resp BP Pulse Ox 98.7 F 72 16 124/67 95 12/17/18 15:21 12/17/18 15:21 12/17/18 15:21 12/17/18 15:21 12/17/18 15:21 - Notes Notes: PHYSICAL EXAMINATION: GENERAL: Well-appearing, well-nourished and in no acute distress. HEAD: Atraumatic, normocephalic. EYES: Pupils equal round and reactive to light, extraocular movements intact, sclera anicteric, conjunctiva are normal. + mild pallor noted. ENT: EAC clear b/l. TM's intact b/l without erythema, fluid, or perforation. Nares patent and without discharge. oropharynx clear without exudates. No tonsilar hypertrophy or erythema. Moist mucous membranes. No sinus tenderness. NECK: Normal range of motion, supple without lymphadenopathy LUNGS: Breath sounds clear to auscultation bilaterally and equal. No wheezes rales or rhonchi. HEART: Regular rate and rhythm without murmurs, rubs, gallops. ABDOMEN: Soft, nontender, nondistended abdomen. No guarding, no rebound. Normal bowel sounds present. No CVA tenderness bilaterally. Rectal: brown stool, no melena or hematochezia noted. Guiac negative. Musculoskeletal: FROM to passive/active. Strength 5+/5. Extremities: No cyanosis, clubbing, or edema b/l. Peripheral pulses 2+. Capillary refill less than 3 seconds. NEUROLOGICAL: Cranial nerves grossly intact. Normal speech, normal gait. Nor mal sensory, motor exams PSYCH: Normal mood, normal affect. SKIN: mildly pale Course - Re-evaluation Re-evalutation: 12/17/18 21:37 Urine by inspection is yellow without gross blood noted. 12/18/18 01:45 Patient is an afebrile, well-hydrated, 68-year-old male who presents with anemia unspecified without area of active bleeding noted. Vitals are acceptable without significant tachycardia, tachypnea, hypotension, or hypoxia. PE is otherwise unremarkable. Patient is nontoxic-appearing and is tolerating p.o. without difficulty. See lab results. Patient is currently finishing up his second unit of blood and will be discharged thereafter. No further work-up warranted. I did review disposition with Dr. Santos who is in agreement at this time. Low suspicion/risk for acute blood loss from active bleed, acute abdomen, severe dehydration, or other systemic emergent condition at this time. Patient is aware that his condition can change from initial presentation and he needs to monitor symptoms closely and seek medical attention if any acute changes. Conservative measures otherwise for symptoms. Patient to contact his PCM tomorrow and to schedule follow-up with his escapement matcher. Consider consult with hematology. Return to the ED with any worsening/concerning symptoms otherwise as reviewed in discharge. Patient is in agreement. 12/18/18 01:49 Pt has no new concerns or complaints. Transfusions x2 finished. Vitals acceptable and pt stable for discharge. - Vital Signs Vital signs: Temp Pulse Resp BP Pulse Ox 98.8 F 70 17 132/87 H 97 12/18/18 01:36 12/18/18 01:36 12/18/18 01:36 12/18/18 01:36 12/18/18 01:36 - Laboratory Result Diagrams: 12/17/18 17:50 12/17/18 16:02 Laboratory results interpreted by me: 12/17/18 12/17/18 12/17/18 16:02 16:02 17:50 RBC 1.75 L Hgb 5.7 L Hct 16.8 L RDW 23.9 H Reticulocyte # PT Chloride 108 H BUN 30 H Creatinine 2.36 H Est GFR ( Amer) 33 L Est GFR (MDRD) Non-Af 28 L Glucose 142 H TIBC 225 L Crossmatch 12/17/18 12/17/18 12/17/18 17:50 17:50 17:50 RBC Hgb Hct RDW Reticulocyte # 0.017 L PT 16.3 H Chloride BUN Creatinine Est GFR ( Amer) Est GFR (MDRD) Non-Af Glucose TIBC Crossmatch See Detail Discharge - Discharge Clinical Impression: Anemia requiring transfusions Condition: Stable Disposition: HOME, SELF-CARE Instructions: Anemia ([facility]) Additional Instructions: Maintain adequate fluid and food intake Healthy diet Monitor blood pressure/heart rate daily and keep a log Monitor symptoms for any acute changes or any areas of active bleeding Call your family provider tomorrow morning as well as your escapement matcher to schedule a follow-up. Consider consult with hematology Return to the ED with any worsening symptoms and/or development of fever, headache, changes in behavior/mentation/vision/speech, chest pain, palpitations, syncope, shortness of breath, trouble breathing, abdominal pain, n/v/d, blood in stool/urine, loss of control of bowel/bladder, urinary retention, muscle weakness/paralysis, saddle anesthesia, numbness/tingling, or other worsening symptoms that are concerning to you. Forms: Elevated Blood Pressure Referrals: Kelly HOFF MD [Primary Care Provider] - Follow up tomorrow NATA CANTU MD [ACTIVE STAFF] - Follow up as needed
[2018-12-17 17:12] LABS: ALBUMIN 4.2 g/dL (3.5-5.0); ALKALINE PHOSPHATASE 70 U/L (38-126); ANION GAP 11 (5-19); ASPARTATE AMINO TRANSFERASE 18 U/L (17-59); BILIRUBIN,DIRECT 0.1 mg/dL (0.0-0.4); BILIRUBIN,TOTAL 0.6 mg/dL (0.2-1.3); BLOOD UREA NITROGEN 30 mg/dL (7-20); CALCIUM 8.8 mg/dL (8.4-10.2); CARBON DIOXIDE 22 mmol/L (22-30); CHLORIDE 108 mmol/L (98-107); GLUCOSE 142 mg/dL (75-110)
[2018-12-17 18:13] LABS: ABSOLUTE EOSINOPHILS # (AUTO) 0.2 10^3/uL (0.0-0.6); ABSOLUTE LYMPHOCYTES (AUTO) 2.7 10^3/uL (0.5-4.7); ABSOLUTE MONOCYTES (AUTO) 0.8 10^3/uL (0.1-1.4); BASOPHILS % (AUTO) 0.7 % (0-2); EOSINOPHILS % (AUTO) 2.5 % (0-6); HEMATOCRIT 16.8 % (37.9-51.0); LYMPHOCYTES % (AUTO) 40.1 % (13-45); MEAN CORPUSCULAR HEMOGLOBIN 32.7 pg (27.0-33.4); MEAN CORPUSCULAR HGB CONC 33.9 g/dL (32.0-36.0); MEAN CORPUSCULAR VOLUME 96 fl (80-97); MONOCYTES % (AUTO) 12.1 % (3-13); PLATELET COUNT 361 10^3/uL (150-450); RED BLOOD COUNT 1.75 10^6/uL (4.35-5.55); RED CELL DISTRIBUTION WIDTH 23.9 % (11.5-14.0); SEGMENTED NEUTROPHILS % (AUTO) 44.6 % (42-78); TOTAL CELLS COUNTED % (AUTO) 100 %; WHITE BLOOD COUNT 6.7 10^3/uL (4.0-10.5)
[2018-12-17 18:16] LABS: HEMOGLOBIN 5.7 g/dL (13.5-17.0)
[2018-12-17 18:18] LABS: PROTHROMBIN TIME 16.3 SEC (11.4-15.4)
[2018-12-17 18:19] LABS: PARTIAL THROMBOPLASTIN TIME 30.3 SEC (23.5-35.8)
[2018-12-17] MEDS ORDERED: NORMAL SALINE 250 ML IV PRN (18:42)
[2018-12-17 20:19] LABS: ABSOLUTE RETICS # 0.017 10^6/uL (0.028-0.122); RETICULOCYTE COUNT (AUTO) 0.97 % (0.66-2.85)
[2018-12-17 20:24] LABS: IRON(TIBC) 175.2 ug/dL (49-181)
[2018-12-17 21:48] LABS: FOLATE 5.88 ng/mL (>2.76)
[2018-12-18 01:37] VITALS: BP 132/87
== END 2018-12-18 02:02 | disposition home or self-care (01) ==
LOC: ER 15:13
DX: D64.9 Anemia, unspecified (principal); I12.9 Hypertensive chronic kidney disease with stage 1 through stage 4 chronic kidney disease, or unspecified chronic kidney disease; N18.9 Chronic kidney disease, unspecified
CPT/HCPCS: 99283; 86900; 86901; 36415; 36430; 86850; 82607; 82728; 82746; 83540; 83550; 85610; 85730; 85045; 80053; 86920; P9016

== ENCOUNTER → 2018-12-17 | Outpatient (CLI) | payer MEDICARE, OTHER ==
[2018-12-17 14:28] LABS: HEMATOCRIT 17.7 % (37.9-51.0); MEAN CORPUSCULAR HEMOGLOBIN 32.7 pg (27.0-33.4); MEAN CORPUSCULAR VOLUME 96 fl (80-97); PLATELET COUNT 369 10^3/uL (150-450); RED BLOOD COUNT 1.84 10^6/uL (4.35-5.55); WHITE BLOOD COUNT 7.3 10^3/uL (4.0-10.5)
== END ==
LOC: OD 13:50
PROVIDERS: ATTEND Internal Medicine Nephrology
DX: N18.4 Chronic kidney disease, stage 4 (severe) (principal); D63.1 Anemia in chronic kidney disease
CPT/HCPCS: 36415; 85027

== ENCOUNTER → 2018-12-30 | Outpatient (CLI) | payer MEDICARE, OTHER ==
[2018-12-30 16:49] LABS: ABSOLUTE EOSINOPHILS # (AUTO) 0.2 10^3/uL (0.0-0.6); ABSOLUTE LYMPHOCYTES (AUTO) 2.2 10^3/uL (0.5-4.7); ABSOLUTE MONOCYTES (AUTO) 0.7 10^3/uL (0.1-1.4); ABSOLUTE NEUT (AUTO) 2.3 10^3/uL (1.7-8.2); BASOPHILS % (AUTO) 0.8 % (0-2); EOSINOPHILS % (AUTO) 3.2 % (0-6); HEMATOCRIT 20.5 % (37.9-51.0); LYMPHOCYTES % (AUTO) 40.9 % (13-45); MEAN CORPUSCULAR HEMOGLOBIN 32.6 pg (27.0-33.4); MEAN CORPUSCULAR HGB CONC 33.8 g/dL (32.0-36.0); MEAN CORPUSCULAR VOLUME 97 fl (80-97); MONOCYTES % (AUTO) 13.5 % (3-13); PLATELET COUNT 372 10^3/uL (150-450); RED BLOOD COUNT 2.12 10^6/uL (4.35-5.55); SEGMENTED NEUTROPHILS % (AUTO) 41.6 % (42-78); TOTAL CELLS COUNTED % (AUTO) 100 %; WHITE BLOOD COUNT 5.5 10^3/uL (4.0-10.5)
[2018-12-30 17:19] LABS: HEMOGLOBIN 6.9 g/dL (13.5-17.0)
== END ==
LOC: OD 15:58
PROVIDERS: ATTEND Physician Assistant Medical
DX: D63.1 Anemia in chronic kidney disease (principal)
CPT/HCPCS: 36415; 85025

== ENCOUNTER → 2019-01-02 | Outpatient (CLI) | payer MEDICARE, OTHER ==
[2019-01-02 17:58] LABS: FOLATE 7.09 ng/mL (>2.76)
== END ==
LOC: OD 15:02
PROVIDERS: ATTEND Physician Assistant Medical
DX: N18.4 Chronic kidney disease, stage 4 (severe) (principal); D63.1 Anemia in chronic kidney disease
CPT/HCPCS: 36415; 82607; 82746; 84165; 84443

== ENCOUNTER → 2019-01-21 | Outpatient (CLI) | payer MEDICARE, OTHER ==
[2019-01-21 16:29] LABS: ABSOLUTE BASOPHILS # (AUTO) 0.1 10^3/uL (0.0-0.2); ABSOLUTE EOSINOPHILS # (AUTO) 0.2 10^3/uL (0.0-0.6); ABSOLUTE LYMPHOCYTES (AUTO) 2.9 10^3/uL (0.5-4.7); ABSOLUTE MONOCYTES (AUTO) 0.7 10^3/uL (0.1-1.4); BASOPHILS % (AUTO) 1.4 % (0-2); HEMATOCRIT 18.4 % (37.9-51.0); LYMPHOCYTES % (AUTO) 36.6 % (13-45); MEAN CORPUSCULAR HEMOGLOBIN 32.5 pg (27.0-33.4); MEAN CORPUSCULAR HGB CONC 33.4 g/dL (32.0-36.0); MEAN CORPUSCULAR VOLUME 97 fl (80-97); PLATELET COUNT 386 10^3/uL (150-450); RED BLOOD COUNT 1.89 10^6/uL (4.35-5.55); RED CELL DISTRIBUTION WIDTH 21.8 % (11.5-14.0); TOTAL CELLS COUNTED % (AUTO) 100 %; WHITE BLOOD COUNT 7.9 10^3/uL (4.0-10.5)
[2019-01-21 16:39] LABS: HEMOGLOBIN 6.1 g/dL (13.5-17.0)
[2019-01-21 16:55] LABS: IRON(TIBC) 176.8 ug/dL (49-181)
== END ==
LOC: OD 15:13
PROVIDERS: ATTEND Internal Medicine Nephrology
DX: N18.4 Chronic kidney disease, stage 4 (severe) (principal); D63.1 Anemia in chronic kidney disease
CPT/HCPCS: 36415; 82728; 83540; 83550; 85025

== ENCOUNTER → 2019-02-23 | Outpatient (CLI) | payer MEDICARE, OTHER ==
[2019-02-23 13:45] LABS: ABSOLUTE BASOPHILS # (AUTO) 0.1 10^3/uL (0.0-0.2); ABSOLUTE EOSINOPHILS # (AUTO) 0.1 10^3/uL (0.0-0.6); ABSOLUTE LYMPHOCYTES (AUTO) 2.3 10^3/uL (0.5-4.7); ABSOLUTE MONOCYTES (AUTO) 0.6 10^3/uL (0.1-1.4); ABSOLUTE NEUT (AUTO) 2.6 10^3/uL (1.7-8.2); BASOPHILS % (AUTO) 1.5 % (0-2); EOSINOPHILS % (AUTO) 2.2 % (0-6); HEMATOCRIT 24.7 % (37.9-51.0); LYMPHOCYTES % (AUTO) 40.4 % (13-45); MEAN CORPUSCULAR HEMOGLOBIN 31.9 pg (27.0-33.4); MEAN CORPUSCULAR HGB CONC 32.2 g/dL (32.0-36.0); MEAN CORPUSCULAR VOLUME 99 fl (80-97); PLATELET COUNT 179 10^3/uL (150-450); RED BLOOD COUNT 2.49 10^6/uL (4.35-5.55); SEGMENTED NEUTROPHILS % (AUTO) 45.9 % (42-78); TOTAL CELLS COUNTED % (AUTO) 100 %; WHITE BLOOD COUNT 5.7 10^3/uL (4.0-10.5)
[2019-02-23 14:20] LABS: ANISOCYTOSIS 3+; HYPOCHROMASIA 1+; OVALOCYTES 1+; TEAR DROP CELLS SLIGHT
[2019-02-23 14:21] LABS: PLATELET COMMENT ADEQUATE
[2019-02-23 14:22] LABS: ALBUMIN 4.1 g/dL (3.5-5.0); ANION GAP 11 (5-19); BLOOD UREA NITROGEN 29 mg/dL (7-20); CALCIUM 8.9 mg/dL (8.4-10.2); CARBON DIOXIDE 23 mmol/L (22-30); CHLORIDE 110 mmol/L (98-107); GLUCOSE 95 mg/dL (75-110)
[2019-02-23 14:27] LABS: HEMOGLOBIN 7.9 g/dL (13.5-17.0)
[2019-02-23 15:25] LABS: APPEARANCE,URINE CLEAR; BILIRUBIN,URINE NEGATIVE (NEGATIVE); COLOR,URINE STRAW; GLUCOSE, URINE NEGATIVE (NEGATIVE); KETONES,URINE NEGATIVE (NEGATIVE); LEUKOCYTE ESTERASE,URINE NEGATIVE (NEGATIVE); NITRITE,URINE NEGATIVE (NEGATIVE); PROTEIN,URINE NEGATIVE (NEGATIVE); UROBILINOGEN,URINE NEGATIVE mg/dL (<2.0)
== END ==
LOC: OD 13:06
PROVIDERS: ATTEND Internal Medicine Nephrology
DX: I12.9 Hypertensive chronic kidney disease with stage 1 through stage 4 chronic kidney disease, or unspecified chronic kidney disease (principal); N18.4 Chronic kidney disease, stage 4 (severe); D63.1 Anemia in chronic kidney disease; N25.0 Renal osteodystrophy
CPT/HCPCS: 36415; 80069; 81001; 83970; 85025

== ENCOUNTER 2019-03-19 15:23 | Outpatient (CLI) | payer MEDICARE, OTHER ==
[2019-03-19 15:53] LABS: HEMATOCRIT 17.5 % (37.9-51.0); MEAN CORPUSCULAR HEMOGLOBIN 31.8 pg (27.0-33.4); MEAN CORPUSCULAR HGB CONC 33.3 g/dL (32.0-36.0); PLATELET COUNT 289 10^3/uL (150-450); RED BLOOD COUNT 1.83 10^6/uL (4.35-5.55); RED CELL DISTRIBUTION WIDTH 26.7 % (11.5-14.0); WHITE BLOOD COUNT 3.6 10^3/uL (4.0-10.5)
[2019-03-19 16:07] LABS: HEMOGLOBIN 5.8 g/dL (13.5-17.0)
[2019-03-19 16:14] LABS: MEAN CORPUSCULAR VOLUME 95 fl (80-97)
[2019-03-19] MEDS ORDERED: NORMAL SALINE 250 ML IV PRN (17:00)
[2019-03-20 01:07] VITALS: BP 133/73
== END 2019-03-20 01:31 | disposition home or self-care (01) ==
LOC: LAB 15:23 → 4W 15:28 → LAB 03-20 01:31
PROVIDERS: ATTEND Internal Medicine
DX: N18.9 Chronic kidney disease, unspecified (principal); D63.1 Anemia in chronic kidney disease; D46.Z Other myelodysplastic syndromes
CPT/HCPCS: 86900; 86901; 36430; 86850; 86920; 96374; P9016; A9270 ×2; J1940

== ENCOUNTER → 2019-05-28 | Outpatient (CLI) | payer MEDICARE, OTHER ==
[2019-05-28 11:03] LABS: ABSOLUTE BASOPHILS # (AUTO) 0.1 10^3/uL (0.0-0.2); ABSOLUTE EOSINOPHILS # (AUTO) 0.3 10^3/uL (0.0-0.6); ABSOLUTE LYMPHOCYTES (AUTO) 2.3 10^3/uL (0.5-4.7); ABSOLUTE MONOCYTES (AUTO) 0.3 10^3/uL (0.1-1.4); ABSOLUTE NEUT (AUTO) 1.7 10^3/uL (1.7-8.2); BASOPHILS % (AUTO) 1.7 % (0-2); EOSINOPHILS % (AUTO) 6.6 % (0-6); HEMATOCRIT 19.3 % (37.9-51.0); MEAN CORPUSCULAR HEMOGLOBIN 32.4 pg (27.0-33.4); MEAN CORPUSCULAR HGB CONC 33.7 g/dL (32.0-36.0); MEAN CORPUSCULAR VOLUME 96 fl (80-97); MONOCYTES % (AUTO) 6.8 % (3-13); PLATELET COUNT 339 10^3/uL (150-450); RED BLOOD COUNT 2.02 10^6/uL (4.35-5.55); RED CELL DISTRIBUTION WIDTH 29.3 % (11.5-14.0); SEGMENTED NEUTROPHILS % (AUTO) 35.9 % (42-78); TOTAL CELLS COUNTED % (AUTO) 100 %; WHITE BLOOD COUNT 4.6 10^3/uL (4.0-10.5)
[2019-05-28 11:18] LABS: ANION GAP 7 (5-19); BLOOD UREA NITROGEN 31 mg/dL (7-20); CALCIUM 9.3 mg/dL (8.4-10.2); CARBON DIOXIDE 28 mmol/L (22-30); CHLORIDE 108 mmol/L (98-107); GLUCOSE 104 mg/dL (75-110); PHOSPHORUS 3.2 mg/dL (2.5-4.5); POTASSIUM 5.2 mmol/L (3.6-5.0)
[2019-05-28 11:46] LABS: PLATELET COMMENT ADEQUATE
[2019-05-28 11:47] LABS: ANISOCYTOSIS 4+
[2019-05-28 11:48] LABS: OVALOCYTES 1+; POIKILOCYTOSIS 1+; POLYCHROMASIA SLIGHT; TARGET CELLS SLIGHT
[2019-05-28 11:52] LABS: APPEARANCE,URINE CLEAR; BILIRUBIN,URINE NEGATIVE (NEGATIVE); COLOR,URINE YELLOW; GLUCOSE, URINE NEGATIVE (NEGATIVE); KETONES,URINE NEGATIVE (NEGATIVE); LEUKOCYTE ESTERASE,URINE NEGATIVE (NEGATIVE); NITRITE,URINE NEGATIVE (NEGATIVE); PROTEIN,URINE NEGATIVE (NEGATIVE); UROBILINOGEN,URINE NEGATIVE mg/dL (<2.0)
[2019-05-28 11:56] LABS: HEMOGLOBIN 6.5 g/dL (13.5-17.0)
== END ==
LOC: OD 10:31
PROVIDERS: ATTEND Internal Medicine Nephrology
DX: I12.9 Hypertensive chronic kidney disease with stage 1 through stage 4 chronic kidney disease, or unspecified chronic kidney disease (principal); N18.4 Chronic kidney disease, stage 4 (severe); N25.0 Renal osteodystrophy
CPT/HCPCS: 36415; 80048; 81001; 83970; 84100; 85025

== ENCOUNTER → 2020-02-11 | Outpatient (CLI) | payer MEDICARE, OTHER ==
--- NOTE | 2020-02-11 12:31 | RADIOLOGY REPORT (SQ) ---
EXAM DESCRIPTION: ANKLE RIGHT COMPLETE IMAGES COMPLETED DATE/TIME: 02/11/2020 11:44 am REASON FOR STUDY: PAIN IN RIGHT ANKLE M25.562 PAIN IN LEFT KNEE M25.571 PAIN IN RIGHT ANKLE AND TERRANCE INTS OF RIGHT FOOT COMPARISON: None. NUMBER OF VIEWS: Three views. TECHNIQUE: AP, lateral, and oblique without weight bearing radiographic images acquired of the right ankle. LIMITATIONS: None. FINDINGS: MINERALIZATION: Normal. BONES: No acute fracture or dislocation. No worrisome bone lesions. No significant osteophytes. JOINTS: No effusions. SOFT TISSUES: Soft tissue swelling. OTHER: No other significant finding. IMPRESSION: There is soft tissue swelling. No acute osseous finding. TECHNICAL DOCUMENTATION: JOB ID: [id number] 2010 [employer]- All Rights Reserved Reading location - IP/workstation name: [email or web address]
--- NOTE | 2020-02-11 12:32 | RADIOLOGY REPORT (SQ) ---
EXAM DESCRIPTION: KNEE LEFT 2 VIEWS IMAGES COMPLETED DATE/TIME: 02/11/2020 11:44 am REASON FOR STUDY: LEFT MEDIAL KNEE PAIN M25.562 PAIN IN LEFT KNEE M25.571 PAIN IN RIGHT ANKLE AND JOINTS OF RIGHT FOOT COMPARISON: None. NUMBER OF VIEWS: Four views. TECHNIQUE: AP, lateral, and both oblique radiographic images acquired of the left knee. LIMITATIONS: None. FINDINGS: MINERALIZATION: Normal. BONES: No acute fracture or dislocation. No worrisome bone lesions. JOINT: Small joint effusion. Joint spaces are maintained. SOFT TISSUES: No soft tissue swelling. No radio-opaque foreign body. OTHER: No other significant finding. IMPRESSION: Small joint effusion. No acute osseous finding. TECHNICAL DOCUMENTATION: JOB ID: [id number] 2010 [employer]- All Rights Reserved Reading location - IP/workstation name: [email or web address]
== END ==
LOC: OD 11:11
PROVIDERS: ATTEND Physician Assistant
DX: M25.462 Effusion, left knee (principal); M25.562 Pain in left knee; M25.571 Pain in right ankle and joints of right foot; M79.89 Other specified soft tissue disorders

== ENCOUNTER 2020-05-03 06:27 | Observation (INO) | payer MEDICARE, OTHER ==
--- NOTE | 2020-05-03 08:00 | RADIOLOGY REPORT (SQ) ---
CHEST X-RAY 1 VIEW on 05/03/2020 at 7:39 AM CLINICAL INDICATION: Shortness of breath COMPARISON: 11/05/2014 FINDINGS: The lungs are clear. Mild vascular calcification is noted in the aorta. A few wires are noted projecting over the chest. Cardiac, hilar and mediastinal contours are within normal limits. Pulmonary vascularity is within normal limits. No bony abnormality is noted. IMPRESSION: No active disease.
--- NOTE | 2020-05-03 08:31 | ER Document Report ---
ED General - General Chief Complaint: Shortness Of Breath Stated Complaint: HARD OF BREATHING/ANKLES SWOLLEN/HEMOGLOBIN Time Seen by Provider: 05/03/20 08:10 Primary Care Provider: NATA DOMINGUEZ MD [Primary Care Provider] - Follow up as needed TRAVEL OUTSIDE OF THE [place] IN LAST 30 DAYS: No - HPI Notes: Chief complaint: "I just do not feel so good" History of present illness: Mr. Kay is a 70-year-old male followed by Dr. Rishi Hoff (nephrology) with a history of stage III chronic kidney disease not currently on dialysis and also followed by Dr. Dominguez (hematology) for anemia of chronic kidney disease presenting today complaining of insidious onset of malaise over the last 2 to 3 weeks which he thinks is probably due to his anemia. Patient has been transfused on multiple occasions in the past and says recently he has been on Epogen injections. Says he generally feels fatigued and this is exacerbated by any exertion. He denies chest pain. He denies cough, fever, vomiting. He denies any melena, hematochezia or hematemesis. He denies abdominal pain. Patient's only current active medical treatment otherwise is for hypertension. Current medications: Amlodipine 10 mg daily [place] Emigdio all twice daily. - Related Data Allergies/Adverse Reactions: No Known Allergies Allergy (Verified 05/03/20 06:56) Past Medical History - General Information source: Patient, Relative, REPLACED BY [facility] Records - Social History Smoking Status: Former Smoker Frequency of alcohol use: None Drug Abuse: None Lives with: Family Family History: Reviewed & Not Pertinent, CAD - Past Medical History Cardiac Medical History: Reports: Hx Hypertension Denies: Hx Congestive Heart Failure, Hx Heart Attack Pulmonary Medical History: Denies: Hx Asthma, Hx Bronchitis, Hx COPD, Hx Pneumonia, Hx Tuberculosis Neurological Medical History: Denies: Hx Seizures, Hx Parkinson's Disease Endocrine Medical History: Denies: Hx Diabetes Mellitus Type 1, Hx Diabetes Mellitus Type 2 Renal/ Medical History: Reports: Hx Renal Insufficiency. Denies: Hx Benign Prostatic Hyperplasia, Hx End Stage Renal Disease, Hx Kidney Stones, Hx Peritoneal Dialysis Malignancy Medical History: Reports None GI Medical History: Reports: Hx Ulcer. Denies: Hx Cirrhosis, Hx Gastroesophageal Reflux Disease Musculoskeletal Medical History: Reports Hx Arthritis, Denies Hx Multiple Sclerosis Psychiatric Medical History: Denies: Hx Bipolar Disorder, Hx Depression, Hx Schizophrenia Past Surgical History: Reports: Hx Cholecystectomy Review of Systems - Review of Systems Notes: Constitutional: As per HPI. HENT: Negative for sore throat. Eyes: Negative for visual changes. Cardiovascular: Negative for chest pain. Respiratory: Negative for shortness of breath. Gastrointestinal: Negative for abdominal pain, vomiting or diarrhea. Genitourinary: Negative for dysuria. Musculoskeletal: Negative for back pain. Skin: Negative for rash. Neurological: Negative for headaches, focal weakness or numbness. 10 point ROS negative except as marked above and in HPI. Physical Exam - Vital signs Vitals: Temp Pulse Resp BP Pulse Ox 98.2 F 87 18 120/63 95 05/03/20 06:56 05/03/20 06:56 05/03/20 06:56 05/03/20 06:56 05/03/20 06:56 - Notes Notes: GENERAL: Pale somewhat chronically ill-appearing elderly man in no acute distress. SKIN: Pale sallow complexion. Good turgor no rashes. HEAD: Normocephalic atraumatic. EYES: PERRLA. EOMI. Conjunctivae pale. Sclerae clear. EARS: CANALS AND TMS CLEAR. NOSE: CLEAR. MOUTH: Moist mucosa. Good dentition. No stridor or edema. No drooling. NECK: Supple. No masses or thyromegaly. No adenopathy. Carotids 2+ without bruits. No JVD. BACK: Symmetrical without tenderness. CHEST: Respirations unlabored. Breath sounds clear and symmetrical. HEART: Regular rhythm. No murmur gallop or rub. ABDOMEN: Soft nontender without masses, organomegaly or rebound. Bowel sounds normally active. No bruits. GENITALIA: Deferred. EXTREMITIES: 2+ bilateral pretibial edema. No calf tenderness. Cap refill less than 1.5 seconds. Dorsalis pedis and posterior tibial pulses 3+ and symmetrical. NEUROLOGICAL: GCS 15. Alert and oriented x3. Normal gait. Fluent speech. Cranial nerves II through XII intact. Sensorimotor and cerebellar normal. Normal tone. PSYCHIATRIC: Appropriate affect. Course - Re-evaluation Re-evalutation: 05/03/20 09:20 Patient is quite anemic with a hemoglobin of 3.8 g. His history and exam does not suggest any active bleeding. His stool was heme-negative here. He is not orthostatic. Findings have been discussed with his roll or tape edge machine operator to Dr. Dominguez and we agreed that patient will receive 2 units packed RBCs transfusion and if he is stable otherwise thereafter he may be discharged home for outpatient follow-up in the clinic 05/03/20 11:30 Lab did a redraw for CBC and are actually reporting now a hemoglobin of 2.8 g. He is not orthostatic. His abdomen is soft and nontender his stool was heme- negative. He is being transfused currently. Case has been again discussed with Dr. Dominguez and we both feel that he needs admission. I spoken with Dr. Correia from hospitalist service and patient is to be admitted. - Vital Signs Vital signs: Temp Pulse Resp BP Pulse Ox 98.3 F 90 19 137/80 H 94 05/03/20 10:08 05/03/20 10:08 05/03/20 10:08 05/03/20 10:08 05/03/20 10:08 - Laboratory Results Result Diagrams: 05/03/20 09:20 05/03/20 08:00 Laboratory Results Interpreted: 05/03/20 05/03/20 05/03/20 08:00 08:00 08:28 RBC Hgb Hct MCV RDW Sodium 146.3 H Chloride 108 H BUN 39 H Creatinine 2.96 H Est GFR ( Amer) 25 L Est GFR (MDRD) Non-Af 21 L Glucose 142 H Calcium 8.1 L Alkaline Phosphatase 131 H NT-Pro-B Natriuret Pep 2270 H Urine Protein Urine Urobilinogen Crossmatch See Detail 05/03/20 05/03/20 09:02 09:20 RBC 0.87 L Hgb 2.8 L* Hct 8.6 L* MCV 99 H RDW 37.0 H Sodium Chloride BUN Creatinine Est GFR ( Amer) Est GFR (MDRD) Non-Af Glucose Calcium Alkaline Phosphatase NT-Pro-B Natriuret Pep Urine Protein 100 H Urine Urobilinogen 4.0 H Crossmatch Critical Laboratory Results Reviewed: Yes Attending or Supervising Physician who Reviewed Labs: FIORDALIZA SOLARES - Radiology Results Radiology Results Interpreted: 05/03/20 08:38 Chest X-Ray 05/03/20 07:04 IMPRESSION: No active disease. Critical Radiology Results Reviewed: No Critical Results - EKG Interpretation by Me Additional EKG results interpreted by me: 05/03/20 08:39 Twelve-lead EKG reviewed by me contemporaneously: 0814 hrs. Indication for study: Generalized weakness Rhythm: Normal sinus Rate: 81 Intervals: QRS prolongation 150 ms QRS axis: +[address]/T wave changes: Right bundle branch block with repolarization changes Comparison with prior tracing: Unchanged compared with earlier study 11/05/2018 Interpretation: Right bundle branch block Critical Care Note - Critical Care Note Total time excluding time spent on procedures (mins): 35 - Transfusion 2 units packed RBCs Discharge - Discharge Clinical Impression: Anemia Chronic kidney disease (CKD) Qualifiers: Chronic kidney disease stage: stage 3 (moderate) Chronic kidney disease stage 3 subtype: stage 3b (GFR 30-44) Qualified Code(s): N18.32 - Chronic kidney disease, stage 3b Condition: Fair Disposition: ADMITTED INPATIENT Unit Admitted: IMCU Referrals: NATA DOMINGUEZ MD [Primary Care Provider] - Follow up as needed
[2020-05-03] MEDS ORDERED: NORMAL SALINE 250 ML IV PRN ×4 (08:34→18:59)
[2020-05-03 08:41] LABS: ALBUMIN 3.5 g/dL (3.5-5.0); ALKALINE PHOSPHATASE 131 U/L (38-126); ANION GAP 11 (5-19); ASPARTATE AMINO TRANSFERASE 24 U/L (17-59); BILIRUBIN,DIRECT 0.3 mg/dL (0.0-0.4); BILIRUBIN,TOTAL 0.5 mg/dL (0.2-1.3); BLOOD UREA NITROGEN 39 mg/dL (7-20); CALCIUM 8.1 mg/dL (8.4-10.2); CARBON DIOXIDE 27 mmol/L (22-30); CHLORIDE 108 mmol/L (98-107); CREATINE KINASE 57 U/L (55-170); GLUCOSE 142 mg/dL (75-110); POTASSIUM 4.4 mmol/L (3.6-5.0); TOTAL PROTEIN 7.8 g/dL (6.3-8.2)
[2020-05-03 08:53] LABS: CREATINE KINASE MB 0.62 ng/mL (<4.55); NT PRO BNP 2270 pg/mL (<125)
[2020-05-03 08:55] LABS: TROPONIN I < 0.012 ng/mL
[2020-05-03] MEDS ORDERED: ACETAMINOPHEN 325 MG TABLET PO ONE (09:18)
[2020-05-03] MEDS ORDERED: FUROSEMIDE INJ/PF 40 MG/4 ML SDV IV ONE (09:19)
[2020-05-03] MEDS ORDERED: DIPHENHYDRAMINE HCL 25 MG CAPSULE PO ONE (09:19)
[2020-05-03 09:21] LABS: APPEARANCE,URINE CLEAR; BILIRUBIN,URINE NEGATIVE (NEGATIVE); COLOR,URINE YELLOW; GLUCOSE, URINE NEGATIVE (NEGATIVE); KETONES,URINE NEGATIVE (NEGATIVE); LEUKOCYTE ESTERASE,URINE NEGATIVE (NEGATIVE); NITRITE,URINE NEGATIVE (NEGATIVE); PROTEIN,URINE 100 mg/dL (NEGATIVE); URINE SPECIFIC GRAVITY 1.013
--- NOTE | 2020-05-03 09:29 | EKG REPORT ---
SEVERITY:- ABNORMAL ECG - SINUS RHYTHM RIGHT BUNDLE BRANCH BLOCK ST DEPRESSION, CONSIDER ISCHEMIA, ANT-LAT LDS : Confirmed by: Tom Blackwell MD 03-May-2020 09:28:17
--- NOTE | 2020-05-03 09:29 | EKG REPORT ---
SEVERITY:- ABNORMAL ECG - SINUS RHYTHM RIGHT BUNDLE BRANCH BLOCK : Confirmed by: Tom Blackwell MD 03-May-2020 09:28:09
[2020-05-03 09:40] LABS: MEAN CORPUSCULAR HEMOGLOBIN 32.5 pg (27.0-33.4); MEAN CORPUSCULAR HGB CONC 32.8 g/dL (32.0-36.0); MEAN CORPUSCULAR VOLUME 99 fl (80-97); PLATELET COUNT 216 10^3/uL (150-450); RED BLOOD COUNT 0.87 10^6/uL (4.35-5.55); WHITE BLOOD COUNT 5.2 10^3/uL (4.0-10.5)
[2020-05-03 09:53] LABS: HEMATOCRIT 8.6 % (37.9-51.0); HEMOGLOBIN 2.8 g/dL (13.5-17.0)
[2020-05-03 10:07] LABS: ABSOLUTE LYMPHOCYTES# (MANUAL) 1.7 10^3/uL (0.5-4.7); ABSOLUTE MONOCYTES # (MANUAL) 0.5 10^3/uL (0.1-1.4); ANISOCYTOSIS 4+; BASOPHILS % (MANUAL) 0 % (0-2); EOSINOPHILS % (MANUAL) 0 % (0-6); HYPOCHROMASIA 2+; LYMPHOCYTES % (MANUAL) 32 % (13-45); MONOCYTES % (MANUAL) 9 % (3-13); NUCLEATED RED BLOOD CELLS 1 /100 WBC (0); OVALOCYTES SLIGHT; PLATELET COMMENT ADEQUATE; POIKILOCYTOSIS SLIGHT; SCHISTOCYTES SLIGHT; SEGMENTED NEUTROPHILS % (MAN) 59 % (42-78); TARGET CELLS SLIGHT; TOTAL CELLS COUNTED 100
[2020-05-03] MEDS ORDERED: ACETAMINOPHEN 650 MG SUPP.RECT PR PRN (17:28)
[2020-05-03] MEDS ORDERED: ONDANSETRON HCL INJ/PF 4 MG/2 ML SDV IV PRN (17:28)
[2020-05-03] MEDS ORDERED: ONDANSETRON 4 MG TAB.RAPDIS PO PRN (17:28)
--- NOTE | 2020-05-03 19:09 | PDOC H&P ---
History of Present Illness Admission Date/PCP: 05/03/20 12:08 NATA DOMINGUEZ MD History of Present Illness: ASH PABLO is a 70 year old male with past medical history significant for severe chronic anemia due to MDS and CKD [address] Matti gunter and Dr. Hoff outpatient, history of ME who presents the ED with a 4-day history of progressive severe fatigue/shortness of breath/YORK/chest pain. Patient was found to have a hemoglobin of 2.8 and was subsequently admitted for transfusion requirements as recommended by Dr. Matti gunter. Patient given 2 units PRBC with follow-up CBC ordered. Patient symptoms immediately improved after transfusion. Patient states he is given Epogen and other bone marrow stimulant medications by his environmental coordinator to control his severe chronic anemia. He frequently requires blood transfusions reportedly throughout the year. He states his b aseline hemoglobin is typically around 6. Troponin was negative and BNP was 2270. Past Medical History Cardiac Medical History: Reports: Hypertension Denies: Congestive Heart Failure, Myocardial Infarction Pulmonary Medical History: Denies: Asthma, Bronchitis, Chronic Obstructive Pulmonary Disease (COPD), Pneumonia, Tuberculosis Neurological Medical History: Denies: Seizures Endocrine Medical History: Denies: Diabetes Mellitus Type 1, Diabetes Mellitus Type 2 Renal/ Medical History: Denies: End Stage Renal Disease Malignancy Medical History: Reports: None, Other - MDS GI Medical History: Denies: Cirrhosis, Gastroesophageal Reflux Disease Musculoskeltal Medical History: Reports: Arthritis Psychiatric Medical History: Denies: Bipolar Disorder, Depression Hematology: Reports: Anemia Denies: Bleeding Tendencies Past Surgical History Past Surgical History: Reports: Cholecystectomy Social History Information Source: Patient, Relative, Emergency Med Personnel Lives with: Family Smoking Status: Former Smoker Electronic Cigarette use?: No Frequency of Alcohol Use: None Hx Recreational Drug Use: No Drugs: None Hx Prescription Drug Abuse: No - Advance Directive Resuscitation Status: Full Code Surrogate healthcare decision maker:: Admitting diagnosis: Severe symptomatic anemia All aspects of code status discussed with patient/POA including cardioversion, chest compressions, and intubation and the patient/POA indicated they wish to be full code MPOA is designated as: , Cassidy Time spent: Greater than 16 minutes Family History Family History: Reviewed & Not Pertinent, CAD Parental Family History Reviewed: Yes Children Family History Reviewed: Yes Sibling(s) Family History Reviewed.: Yes Medication/Allergy Home Medications: Amlodipine Besylate [Norvasc 10 mg Tablet] 10 mg PO DAILY 05/03/20 Carvedilol [Coreg] 25 mg PO Q12 05/03/20 Allergies/Adverse Reactions: No Known Allergies Allergy (Verified 05/03/20 06:56) Review of Systems All systems: reviewed and no additional remarkable complaints except as stated - Per HPI otherwise negative Physical Exam Vital Signs: Temp Pulse Resp BP Pulse Ox 98.2 F 80 14 132/68 H 97 05/03/20 15:35 05/03/20 15:35 05/03/20 15:35 05/03/20 15:35 05/03/20 15:35 Intake & Output 05/02/20 05/03/20 05/04/20 06:59 06:59 06:59 Intake Total 1230 Output Total 585 Balance 645 Weight 85.729 kg 90.6 kg Exam: General appearance: PRESENT: no acute distress, frail and chronically ill- appearing elderly -Faroese male Head exam: PRESENT: atraumatic, normocephalic Eye exam: PRESENT: conjunctiva pale ABSENT: scleral icterus Mouth exam: PRESENT: moist Respiratory exam: PRESENT: clear to auscultation amber. ABSENT: rales, rhonchi, wheezes Cardiovascular exam: PRESENT: RRR. ABSENT: diastolic murmur, rubs, systolic murmur GI/Abdominal exam: PRESENT: normal bowel sounds, soft. ABSENT: distended, guarding, mass, organolmegaly, rebound, tenderness Neurological exam: PRESENT: alert, awake, oriented to person, oriented to place, oriented to time, oriented to situation Psychiatric exam: PRESENT: appropriate affect, normal mood Skin exam: PRESENT: dry, intact, warm; +2 BLE edema Results Laboratory Results: 05/03/20 09:20 05/03/20 08:00 05/03/20 05/03/20 05/03/20 08:00 08:00 08:00 WBC Cancelled RBC Cancelled Hgb Cancelled Hct Cancelled MCV Cancelled MCH Cancelled MCHC Cancelled RDW Cancelled Plt Count Cancelled Seg Neutrophils % Cancelled Sodium 146.3 H Potassium 4.4 Chloride 108 H Carbon Dioxide 27 Anion Gap 11 BUN 39 H Creatinine 2.96 H Est GFR ( Amer) 25 L Glucose 142 H Calcium 8.1 L Total Bilirubin 0.5 AST 24 Alkaline Phosphatase 131 H Total Protein 7.8 Albumin 3.5 Urine Color Urine Appearance Urine pH Ur Specific [place] Urine Protein Urine Glucose (UA) Urine Ketones Urine Blood Urine Nitrite Ur Leukocyte Esterase Urine WBC (Auto) Blood Type Cancelled Antibody Screen Cancelled 05/03/20 05/03/20 05/03/20 08:28 09:02 09:20 WBC 5.2 RBC 0.87 L Hgb 2.8 L* Hct 8.6 L* MCV 99 H MCH 32.5 MCHC 32.8 RDW 37.0 H Plt Count 216 Seg Neutrophils % Not Reportable Sodium Potassium Chloride Carbon Dioxide Anion Gap BUN Creatinine Est GFR ( Amer) Glucose Calcium Total Bilirubin AST Alkaline Phosphatase Total Protein Albumin Urine Color YELLOW Urine Appearance CLEAR Urine pH 6.0 Ur Specific [place] 1.013 Urine Protein 100 H Urine Glucose (UA) NEGATIVE Urine Ketones NEGATIVE Urine Blood NEGATIVE Urine Nitrite NEGATIVE Ur Leukocyte Esterase NEGATIVE Urine WBC (Auto) 0 Blood Type O POSITIVE Antibody Screen NEGATIVE 05/03/20 05/03/20 08:00 08:00 Creatine Kinase 57 CK-MB (CK-2) 0.62 Troponin I < 0.012 NT-Pro-B Natriuret Pep 2270 H Impressions: Chest X-Ray 05/03/20 07:04 IMPRESSION: No active disease. Assessment and Plan - Diagnosis (1) Symptomatic anemia Is this a current diagnosis for this admission?: Yes Plan: Multifactorial: MDS and CKD 4 Pathology consulted: Patient follows with Dr. Dominguez outpatient Transfused 2 units PRBC in ED, recheck CBC Ordered 2 additional units PRBC to be transfused overnight Watch for signs of volume overload and give Lasix if needed Bone marrow stimulant medications per hematology (2) Anemia in chronic kidney disease (CKD) Qualifiers: Chronic kidney disease stage: stage 4 (severe) Qualified Code(s): N18.4 - Chronic kidney disease, stage 4 (severe); D63.1 - Anemia in chronic kidney disease Is this a current diagnosis for this admission?: Yes Plan: Follows with Dr. Hoff outpatient Creatinine baseline approximately 2.7 per previous records Trend BMP (3) MDS (myelodysplastic syndrome) Is this a current diagnosis for this admission?: Yes Plan: Followed by hematology outpatient (4) Hypertension Qualifiers: Hypertension type: essential hypertension Qualified Code(s): I10 - Essential (primary) hypertension Is this a current diagnosis for this admission?: Yes Plan: Home medications as appropriate - Time Time Spent with patient: 35 or more minutes Medications reviewed and adjusted accordingly: Yes Anticipated Discharge Disposition: Home, Self Care Anticipated Discharge Timeframe: within 48 hours
[2020-05-03 20:23] LABS: HEMATOCRIT 16.2 % (37.9-51.0); MEAN CORPUSCULAR HEMOGLOBIN 31.2 pg (27.0-33.4); PLATELET COUNT 241 10^3/uL (150-450); RED BLOOD COUNT 1.76 10^6/uL (4.35-5.55); RED CELL DISTRIBUTION WIDTH 24.2 % (11.5-14.0)
[2020-05-03 20:55] LABS: ABSOLUTE LYMPHOCYTES# (MANUAL) 1.8 10^3/uL (0.5-4.7); ABSOLUTE MONOCYTES # (MANUAL) 1.3 10^3/uL (0.1-1.4); BAND NEUTROPHILS % (MANUAL) 4 % (3-5); BASOPHILS % (MANUAL) 0 % (0-2); EOSINOPHILS % (MANUAL) 4 % (0-6); LYMPHOCYTES % (MANUAL) 26 % (13-45); MONOCYTES % (MANUAL) 19 % (3-13); SEGMENTED NEUTROPHILS % (MAN) 47 % (42-78); TOTAL CELLS COUNTED 100
[2020-05-03 20:58] LABS: ANISOCYTOSIS 3+; PLATELET COMMENT ADEQUATE; POIKILOCYTOSIS 2+; POLYCHROMASIA 1+; SCHISTOCYTES 2+; TARGET CELLS 2+; TEAR DROP CELLS 1+
[2020-05-03 21:05] LABS: HEMOGLOBIN 5.5 g/dL (13.5-17.0); MEAN CORPUSCULAR VOLUME 92 fl (80-97)
[2020-05-04 05:32] LABS: ABSOLUTE BASOPHILS # (AUTO) 0.1 10^3/uL (0.0-0.2); ABSOLUTE EOSINOPHILS # (AUTO) 0.1 10^3/uL (0.0-0.6); ABSOLUTE LYMPHOCYTES (AUTO) 1.8 10^3/uL (0.5-4.7); ABSOLUTE MONOCYTES (AUTO) 0.9 10^3/uL (0.1-1.4); ABSOLUTE NEUT (AUTO) 5.1 10^3/uL (1.7-8.2); BASOPHILS % (AUTO) 0.7 % (0-2); EOSINOPHILS % (AUTO) 1.4 % (0-6); HEMATOCRIT 23.1 % (37.9-51.0); LYMPHOCYTES % (AUTO) 23.1 % (13-45); MEAN CORPUSCULAR HEMOGLOBIN 31.1 pg (27.0-33.4); MEAN CORPUSCULAR HGB CONC 34.7 g/dL (32.0-36.0); MEAN CORPUSCULAR VOLUME 90 fl (80-97); MONOCYTES % (AUTO) 11.7 % (3-13); PLATELET COUNT 241 10^3/uL (150-450); RED BLOOD COUNT 2.57 10^6/uL (4.35-5.55); RED CELL DISTRIBUTION WIDTH 18.8 % (11.5-14.0); SEGMENTED NEUTROPHILS % (AUTO) 63.1 % (42-78); TOTAL CELLS COUNTED % (AUTO) 100 %
[2020-05-04 05:48] LABS: ANION GAP 10 (5-19); BLOOD UREA NITROGEN 39 mg/dL (7-20); CARBON DIOXIDE 24 mmol/L (22-30); CHLORIDE 108 mmol/L (98-107); GLUCOSE 122 mg/dL (75-110); PHOSPHORUS 3.5 mg/dL (2.5-4.5); POTASSIUM 4.8 mmol/L (3.6-5.0)
--- NOTE | 2020-05-04 07:44 | PDOC CONSULTATION ---
Consultation Consult Date: 05/04/20 Attending physician:: KEI MOLINA Provider Consulted: NATA CANTU Consult reason:: Asked to see patient well-known to our oncology service with severe anemia history History of Present Illness Admission Date/PCP: 05/03/20 12:08 NATA CANTU MD Patient complains of: Weakness, anemia History of Present Illness: ASH PABLO is a 70 year old male who presents with weakness, he was found upon presentation to the ER to have a hemoglobin in the 2 range. We have been seeing him now for about a year and a half, previously was being followed by Dr. Suarez who closed her office. He had prior to that a 2-year history of anemia of chronic disease, and had been on erythropoietin stimulating agents. 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 Therefore, given the fact that he was refractory to RACHEL's, we initiated Vidaza. He has been on that for about a year, was becoming transfusion independent but recently his counts have been worse. He received his last cycle of therapy about 2 weeks ago. So this is the harmony of his counts. He was given 4 units packed red blood cell and today's hemoglobin is 8. Past Medical History Cardiac Medical History: Reports: Hypertension Denies: Congestive Heart Failure, Myocardial Infarction Pulmonary Medical History: Denies: Asthma, Bronchitis, Chronic Obstructive Pulmonary Disease (COPD), Pneumonia, Tuberculosis Neurological Medical History: Denies: Seizures Endocrine Medical History: Denies: Diabetes Mellitus Type 1, Diabetes Mellitus Type 2 Renal/ Medical History: Denies: End Stage Renal Disease Malignancy Medical History: Reports: None, Other - MDS GI Medical History: Denies: Cirrhosis, Gastroesophageal Reflux Disease Musculoskeltal Medical History: Reports: Arthritis Psychiatric Medical History: Denies: Bipolar Disorder, Depression Hematology: Reports: Anemia Denies: Bleeding Tendencies Past Surgical History Past Surgical History: Reports: Cholecystectomy Social History Information Source: Patient Lives with: Family Smoking Status: Former Smoker Electronic Cigarette use?: No Frequency of Alcohol Use: None Hx Recreational Drug Use: No Drugs: None Hx Prescription Drug Abuse: No - Advance Directive Resuscitation Status: Full Code Family History Family History: Reviewed & Not Pertinent, CAD Parental Family History Reviewed: Yes Children Family History Reviewed: Yes Sibling(s) Family History Reviewed.: Yes Medication/Allergy Home Medications: Amlodipine Besylate [Norvasc 10 mg Tablet] 10 mg PO DAILY 05/03/20 Carvedilol [Coreg] 25 mg PO Q12 05/03/20 Allergies/Adverse Reactions: No Known Allergies Allergy (Verified 05/03/20 06:56) Review of Systems Constitutional: ABSENT: chills, fever(s), headache(s), weight gain, weight loss Eyes: ABSENT: visual disturbances Ears: ABSENT: hearing changes Cardiovascular: ABSENT: chest pain, dyspnea on exertion, edema, orthropnea, palpitations Respiratory: ABSENT: cough, hemoptysis Gastrointestinal: ABSENT: abdominal pain, constipation, diarrhea, hematemesis, hematochezia, nausea, vomiting Genitourinary: ABSENT: dysuria, hematuria Musculoskeletal: ABSENT: joint swelling Integumentary: ABSENT: rash, wounds Neurological: ABSENT: abnormal gait, abnormal speech, confusion, dizziness, focal weakness, syncope Psychiatric: ABSENT: anxiety, depression, homidical ideation, suicidal ideation Endocrine: ABSENT: cold intolerance, heat intolerance, polydipsia, polyuria Hematologic/Lymphatic: ABSENT: easy bleeding, easy bruising Physical Exam Vital Signs: Temp Pulse Resp BP Pulse Ox 98.2 F 79 18 151/79 H 92 05/04/20 07:31 05/04/20 07:31 05/04/20 07:31 05/04/20 07:31 05/04/20 07:31 Intake & Output 05/03/20 05/04/20 05/05/20 06:59 06:59 06:59 Intake Total 1830 Output Total 985 Balance 845 Weight 85.729 kg 91.4 kg General appearance: PRESENT: no acute distress, well-developed, well-nourished Head exam: PRESENT: atraumatic, normocephalic Eye exam: PRESENT: conjunctiva pink, EOMI, PERRLA. ABSENT: scleral icterus Ear exam: PRESENT: normal external ear exam Mouth exam: PRESENT: moist, tongue midline Neck exam: ABSENT: carotid bruit, JVD, lymphadenopathy, thyromegaly Respiratory exam: PRESENT: clear to auscultation amber. ABSENT: rales, rhonchi, wheezes Cardiovascular exam: PRESENT: RRR. ABSENT: diastolic murmur, rubs, systolic murmur Pulses: PRESENT: normal dorsalis pedis pul Vascular exam: PRESENT: normal capillary refill GI/Abdominal exam: PRESENT: normal bowel sounds, soft. ABSENT: distended, guarding, mass, organolmegaly, rebound, tenderness Rectal exam: PRESENT: deferred Extremities exam: PRESENT: full ROM. ABSENT: calf tenderness, clubbing, pedal edema Neurological exam: PRESENT: alert, awake, oriented to person, oriented to place, oriented to time, oriented to situation, CN II-XII grossly intact. ABSENT: motor sensory deficit Psychiatric exam: PRESENT: appropriate affect, normal mood. ABSENT: homicidal ideation, suicidal ideation Skin exam: PRESENT: dry, intact, warm. ABSENT: cyanosis, rash Results Laboratory Results: 05/04/20 04:57 05/04/20 04:57 05/03/20 05/03/20 05/03/20 08:00 08:00 08:00 WBC Cancelled RBC Cancelled Hgb Cancelled Hct Cancelled MCV Cancelled MCH Cancelled MCHC Cancelled RDW Cancelled Plt Count Cancelled Seg Neutrophils % Cancelled Sodium 146.3 H Potassium 4.4 Chloride 108 H Carbon Dioxide 27 Anion Gap 11 BUN 39 H Creatinine 2.96 H Est GFR ( Amer) 25 L Glucose 142 H Calcium 8.1 L Phosphorus Magnesium Total Bilirubin 0.5 AST 24 Alkaline Phosphatase 131 H Total Protein 7.8 Albumin 3.5 TSH Urine Color Urine Appearance Urine pH Ur Specific [place] Urine Protein Urine Glucose (UA) Urine Ketones Urine Blood Urine Nitrite Ur Leukocyte Esterase Urine WBC (Auto) Blood Type Cancelled Antibody Screen Cancelled 05/03/20 05/03/20 05/03/20 08:28 09:02 09:20 WBC 5.2 RBC 0.87 L Hgb 2.8 L* Hct 8.6 L* MCV 99 H MCH 32.5 MCHC 32.8 RDW 37.0 H Plt Count 216 Seg Neutrophils % Not Reportable Sodium Potassium Chloride Carbon Dioxide Anion Gap BUN Creatinine Est GFR ( Amer) Glucose Calcium Phosphorus Magnesium Total Bilirubin AST Alkaline Phosphatase Total Protein Albumin TSH Urine Color YELLOW Urine Appearance CLEAR Urine pH 6.0 Ur Specific [place] 1.013 Urine Protein 100 H Urine Glucose (UA) NEGATIVE Urine Ketones NEGATIVE Urine Blood NEGATIVE Urine Nitrite NEGATIVE Ur Leukocyte Esterase NEGATIVE Urine WBC (Auto) 0 Blood Type O POSITIVE Antibody Screen NEGATIVE 05/03/20 05/04/20 05/04/20 19:51 04:57 04:57 WBC 7.0 RBC 1.76 L Hgb 5.5 L D Hct 16.2 L MCV 92 D MCH 31.2 MCHC 34.0 RDW 24.2 H Plt Count 241 Seg Neutrophils % Not Reportable Sodium 141.6 Potassium 4.8 Chloride 108 H Carbon Dioxide 24 Anion Gap 10 BUN 39 H Creatinine 2.74 H Est GFR ( Amer) 28 L Glucose 122 H Calcium 8.0 L Phosphorus 3.5 Magnesium 1.3 L Total Bilirubin AST Alkaline Phosphatase Total Protein Albumin TSH 1.30 Urine Color Urine Appearance Urine pH Ur Specific [place] Urine Protein Urine Glucose (UA) Urine Ketones Urine Blood Urine Nitrite Ur Leukocyte Esterase Urine WBC (Auto) Blood Type Antibody Screen 05/04/20 04:57 WBC 8.0 RBC 2.57 L Hgb 8.0 L D Hct 23.1 L MCV 90 MCH 31.1 MCHC 34.7 RDW 18.8 H Plt Count 241 Seg Neutrophils % 63.1 Sodium Potassium Chloride Carbon Dioxide Anion Gap BUN Creatinine Est GFR ( Amer) Glucose Calcium Phosphorus Magnesium Total Bilirubin AST Alkaline Phosphatase Total Protein Albumin TSH Urine Color Urine Appearance Urine pH Ur Specific [place] Urine Protein Urine Glucose (UA) Urine Ketones Urine Blood Urine Nitrite Ur Leukocyte Esterase Urine WBC (Auto) Blood Type Antibody Screen 05/03/20 05/03/20 08:00 08:00 Creatine Kinase 57 CK-MB (CK-2) 0.62 Troponin I < 0.012 NT-Pro-B Natriuret Pep 2270 H Impressions: Chest X-Ray 05/03/20 07:04 IMPRESSION: No active disease. Assessment & Plan - Diagnosis (1) MDS (myelodysplastic syndrome) Is this a current diagnosis for this admission?: Yes Plan: Hemoglobin is improved to 8. Asked nursing to get him up and move around and as long as he can get up and move around as he was before he should be able to discharge home today. He has close follow-up with us and has CBCs drawn weekly. (2) Anemia in chronic kidney disease (CKD) Qualifiers: Chronic kidney disease stage: stage 4 (severe) Qualified Code(s): N18.4 - Chronic kidney disease, stage 4 (severe); D63.1 - Anemia in chronic kidney disease Is this a current diagnosis for this admission?: Yes Plan: You will continue with both RACHEL's as well as above MDS treatments. We will follow closely. - Time Time Spent: Greater than 70 Minutes - Inpatient Certification Based on my medical assessment, after consideration of the patient's comorbidities, presenting symptoms, or acuity I expect that the services needed warrant INPATIENT care.: Yes I certify that my determination is in accordance with my understanding of Medicare's requirements for reasonable and necessary INPATIENT services [42 CFR 412.3e].: Yes Medical Necessity: Risk of Complication if Not Cared For in Hospital
[2020-05-04] MEDS ORDERED: MAGNESIUM OXIDE 400 MG TABLET PO ONE (08:30)
[2020-05-04] MEDS ORDERED: DOCUSATE SODIUM 100 MG CAPSULE PO SCH (10:00)
[2020-05-04 12:49] LABS: PATH REVIEW PATHOLOGIST REVIEWED
[2020-05-04 13:08] VITALS: BP 146/81
--- NOTE | 2020-05-04 13:08 | PDOC DISCHARGE SUMMARY ---
Impression - Admit/DC Date/PCP Admission Date/Primary Care Provider: 05/03/20 12:08 NATA DOMINGUEZ MD Discharge Date: 05/04/20 - Discharge Diagnosis (1) Symptomatic anemia Is this a current diagnosis for this admission?: Yes (2) Anemia in chronic kidney disease (CKD) Is this a current diagnosis for this admission?: Yes (3) MDS (myelodysplastic syndrome) Is this a current diagnosis for this admission?: Yes (4) Hypertension Is this a current diagnosis for this admission?: Yes - Assessment Summary: ASH PBALO is a 70 year old male with past medical history significant for severe chronic anemia due to MDS and CKD [address] Matti gunter and Dr. Hoff outpatient, history of [place] who presents the ED with a 4-day history of progressive severe fatigue/shortness of breath/YORK/chest pain. Patient was found to have a hemoglobin of 2.8 and was subsequently admitted for transfusion requirements as recommended by Dr. Matti gunter. Patient given 2 units PRBC with follow-up CBC ordered. Patient symptoms immediately improved after transfusion. 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 He frequently requires blood transfusions reportedly throughout the year. He states his baseline hemoglobin is typically around 6. Troponin was negative and BNP was 2270. (1) Symptomatic anemia Is this a current diagnosis for this admission?: Yes Plan: Multifactorial: MDS and CKD 4 Pathology consulted: Patient follows with Dr. Dominguez outpatient Transfused 2 units PRBC in ED, recheck CBC Ordered 2 additional units PRBC to be transfused overnight Watch for signs of volume overload and give Lasix if needed Bone marrow stimulant medications per hematology Hemoglobin zurdo to 8-day after admission after receiving 4 units PRBC total Hematology consulted and recommend discharge Home health physical therapy ordered Repeat CBC within 1 week after discharge (2) Anemia in chronic kidney disease (CKD) Qualifiers: Chronic kidney disease stage: stage 4 (severe) Qualified Code(s): N18.4 - Chronic kidney disease, stage 4 (severe); D63.1 - Anemia in chronic kidney disease Is this a current diagnosis for this admission?: Yes Plan: Follows with Dr. Hoff outpatient Creatinine baseline approximately 2.7 per previous records Trend BMP (3) MDS (myelodysplastic syndrome) Is this a current diagnosis for this admission?: Yes Plan: Followed by hematology outpatient (4) Hypertension Qualifiers: Hypertension type: essential hypertension Qualified Code(s): I10 - Essential (primary) hypertension Is this a current diagnosis for this admission?: Yes Plan: Home medications as appropriate - Additional Information Resuscitation Status: Full Code Discharge Diet: As Tolerated, Regular Discharge Activity: Activity As Tolerated, Balance Activity w/Rest Referrals: NATA DOMINGUEZ MD [Primary Care Provider] - Follow up as needed Home Medications: Amlodipine Besylate [Norvasc 10 mg Tablet] 10 mg PO DAILY 05/03/20 Carvedilol [Coreg] 25 mg PO Q12 05/03/20 History of Present Illiness History of Present Illness: ASH PABLO is a 70 year old male with past medical history significant for severe chronic anemia due to MDS and CKD [address] Matti gunter and Dr. Hoff outpatient, history of [place] who presents the ED with a 4-day history of progressive severe fatigue/shortness of breath/YORK/chest pain. Patient was found to have a hemoglobin of 2.8 and was subsequently admitted for transfusion requirements as recommended by Dr. Matti gunter. Patient given 2 units PRBC with follow-up CBC ordered. Patient symptoms immediately improved after transfusion. 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 He frequently requires blood transfusions reportedly throughout the year. He states his baseline hemoglobin is typically around 6. Troponin was negative and BNP was 2270. Physical Exam Vital Signs: Temp Pulse Resp BP Pulse Ox 98.1 F 87 19 139/77 H 92 05/04/20 12:06 05/04/20 12:06 05/04/20 12:06 05/04/20 12:06 05/04/20 12:06 Intake & Output 05/03/20 05/04/20 05/05/20 06:59 06:59 06:59 Intake Total 1830 Output Total 985 Balance 845 Weight 85.729 kg 91.4 kg Exam: General appearance: PRESENT: no acute distress, frail and chronically ill- appearing elderly -[place] male, states he feels much better Head exam: PRESENT: atraumatic, normocephalic Eye exam: PRESENT: conjunctiva pale ABSENT: scleral icterus Mouth exam: PRESENT: moist Respiratory exam: PRESENT: clear to auscultation amber. ABSENT: rales, rhonchi, wheezes Cardiovascular exam: PRESENT: RRR. ABSENT: diastolic murmur, rubs, systolic murmur GI/Abdominal exam: PRESENT: normal bowel sounds, soft. ABSENT: distended, guarding, mass, organolmegaly, rebound, tenderness Neurological exam: PRESENT: alert, awake, oriented to person, oriented to place, oriented to time, oriented to situation Psychiatric exam: PRESENT: appropriate affect, normal mood Skin exam: PRESENT: dry, intact, warm; chronic +2 BLE edema Results Laboratory Results: WBC 8.0 10^3/uL (4.0-10.5) 05/04/20 04:57 RBC 2.57 10^6/uL (4.35-5.55) L 05/04/20 04:57 Hgb 8.0 g/dL (13.5-17.0) L D 05/04/20 04:57 Hct 23.1 % (37.9-51.0) L 05/04/20 04:57 MCV 90 fl (80-97) 05/04/20 04:57 MCH 31.1 pg (27.0-33.4) 05/04/20 04:57 MCHC 34.7 g/dL (32.0-36.0) 05/04/20 04:57 RDW 18.8 % (11.5-14.0) H 05/04/20 04:57 Plt Count 241 10^3/uL (150-450) 05/04/20 04:57 Lymph % (Auto) 23.1 % (13-45) 05/04/20 04:57 Hunt % (Auto) 11.7 % (3-13) 05/04/20 04:57 Eos % (Auto) 1.4 % (0-6) 05/04/20 04:57 Baso % (Auto) 0.7 % (0-2) 05/04/20 04:57 Absolute Neuts (auto) 5.1 10^3/uL (1.7-8.2) 05/04/20 04:57 Absolute Lymphs (auto) 1.8 10^3/uL (0.5-4.7) 05/04/20 04:57 Absolute Monos (auto) 0.9 10^3/uL (0.1-1.4) 05/04/20 04:57 Absolute Eos (auto) 0.1 10^3/uL (0.0-0.6) 05/04/20 04:57 Absolute Basos (auto) 0.1 10^3/uL (0.0-0.2) 05/04/20 04:57 Total Counted 100 05/03/20 19:51 Seg Neutrophils % 63.1 % (42-78) 05/04/20 04:57 Seg Neuts % (Manual) 47 % (42-78) 05/03/20 19:51 Band Neutrophils % 4 % (3-5) 05/03/20 19:51 Lymphocytes % (Manual) 26 % (13-45) 05/03/20 19:51 Monocytes % (Manual) 19 % (3-13) H 05/03/20 19:51 Eosinophils % (Manual) 4 % (0-6) 05/03/20 19:51 Basophils % (Manual) 0 % (0-2) 05/03/20 19:51 Abs Neuts (Manual) 3.6 10^3/uL (1.7-8.2) 05/03/20 19:51 Abs Lymphs (Manual) 1.8 10^3/uL (0.5-4.7) 05/03/20 19:51 Abs Monocytes (Manual) 1.3 10^3/uL (0.1-1.4) 05/03/20 19:51 Absolute Eos (Manual) 0.3 10^3/uL (0.0-0.6) 05/03/20 19:51 Abs Basophils (Manual) 0.0 10^3/uL (0.0-0.2) 05/03/20 19:51 Nucleated RBCs 1 /100 WBC (0) 05/03/20 09:20 Platelet Estimate Cancelled 05/03/20 08:00 Platelet Comment ADEQUATE 05/03/20 19:51 Polychromasia 1+ 05/03/20 19:51 Hypochromasia 2+ 05/03/20 09:20 Poikilocytosis 2+ 05/03/20 19:51 Anisocytosis 3+ 05/03/20 19:51 Target Cells 2+ 05/03/20 19:51 Tear Drop Cells 1+ 05/03/20 19:51 Ovalocytes SLIGHT 05/03/20 09:20 Schistocytes 2+ 05/03/20 19:51 Sodium 141.6 mmol/L (137-145) 05/04/20 04:57 Potassium 4.8 mmol/L (3.6-5.0) 05/04/20 04:57 Chloride 108 mmol/L (98-107) H 05/04/20 04:57 Carbon Dioxide 24 mmol/L (22-30) 05/04/20 04:57 Anion Gap 10 (5-19) 05/04/20 04:57 BUN 39 mg/dL (7-20) H 05/04/20 04:57 Creatinine 2.74 mg/dL (0.52-1.25) H 05/04/20 04:57 Est GFR ( Amer) 28 (>60) L 05/04/20 04:57 Est GFR (MDRD) Non-Af 23 (>60) L 05/04/20 04:57 Glucose 122 mg/dL (75-110) H 05/04/20 04:57 Calcium 8.0 mg/dL (8.4-10.2) L 05/04/20 04:57 Phosphorus 3.5 mg/dL (2.5-4.5) 05/04/20 04:57 Magnesium 1.3 mg/dL (1.6-2.3) L 05/04/20 04:57 Total Bilirubin 0.5 mg/dL (0.2-1.3) 05/03/20 08:00 Direct Bilirubin 0.3 mg/dL (0.0-0.4) 05/03/20 08:00 Neonat Total Bilirubin Not Reportable 05/03/20 08:00 Neonat Direct Bilirubin Not Reportable 05/03/20 08:00 Neonat Indirect Bili Not Reportable 05/03/20 08:00 AST 24 U/L (17-59) 05/03/20 08:00 ALT 21 U/L (<50) 05/03/20 08:00 Alkaline Phosphatase 131 U/L (38-126) H 05/03/20 08:00 Creatine Kinase 57 U/L (55-170) 05/03/20 08:00 CK-MB (CK-2) 0.62 ng/mL (<4.55) 05/03/20 08:00 Troponin I < 0.012 ng/mL 05/03/20 08:00 NT-Pro-B Natriuret Pep 2270 pg/mL (<125) H 05/03/20 08:00 Total Protein 7.8 g/dL (6.3-8.2) 05/03/20 08:00 Albumin 3.5 g/dL (3.5-5.0) 05/03/20 08:00 TSH 1.30 uIU/mL (0.47-4.68) 05/04/20 04:57 Urine Color YELLOW 05/03/20 09:02 Urine Appearance CLEAR 05/03/20 09:02 Urine pH 6.0 (5.0-9.0) 05/03/20 09:02 Ur Specific [place] 1.013 05/03/20 09:02 Urine Protein 100 mg/dL (NEGATIVE) H 05/03/20 09:02 Urine Glucose (UA) NEGATIVE mg/dL (NEGATIVE) 05/03/20 09:02 Urine Ketones NEGATIVE mg/dL (NEGATIVE) 05/03/20 09:02 Urine Blood NEGATIVE (NEGATIVE) 05/03/20 09:02 Urine Nitrite NEGATIVE (NEGATIVE) 05/03/20 09:02 Urine Bilirubin NEGATIVE (NEGATIVE) 05/03/20 09:02 Urine Urobilinogen 4.0 mg/dL (<2.0) H 05/03/20 09:02 Ur Leukocyte Esterase NEGATIVE (NEGATIVE) 05/03/20 09:02 Urine WBC (Auto) 0 /HPF 05/03/20 09:02 Squamous Epi Cells Auto 1 /HPF 05/03/20 09:02 Urine Ascorbic Acid NEGATIVE (NEGATIVE) 05/03/20 09:02 Slides for Path Review PATHOLOGIST REVIEWED 05/03/20 09:20 Blood Type O POSITIVE 05/03/20 08:28 Blood Type Confirm O POSITIVE 05/03/20 08:28 Antibody Screen NEGATIVE 05/03/20 08:28 Crossmatch See Detail 05/03/20 08:28 05/03/20 08:00 CK-MB (CK-2) 0.62 Troponin I < 0.012 NT-Pro-B Natriuret Pep 2270 H Impressions: Chest X-Ray 05/03/20 07:04 IMPRESSION: No active disease. Plan Plan of Treatment: Follow-up with PCP Follow-up with hematology Repeat CBC within 1 week Time Spent: Greater than 30 Minutes Stroke Is this a Stroke Patient?: No Acute Heart Failure Is this a Heart Failure Patient?: No
== END 2020-05-04 14:49 | disposition home or self-care (01) ==
LOC: ER 06:27 → INTOOBSV 12:08 → EH 12:08 → 3W 13:22
PROVIDERS: ADMIT Internal Medicine; ATTEND Internal Medicine
DX: D46.9 Myelodysplastic syndrome, unspecified (principal); I12.9 Hypertensive chronic kidney disease with stage 1 through stage 4 chronic kidney disease, or unspecified chronic kidney disease; N18.4 Chronic kidney disease, stage 4 (severe); D63.1 Anemia in chronic kidney disease; I25.2 Old myocardial infarction; Z79.899 Other long term (current) drug therapy; R60.0 Localized edema; Z90.49 Acquired absence of other specified parts of digestive tract; Z82.49 Family history of ischemic heart disease and other diseases of the circulatory system; Z87.891 Personal history of nicotine dependence
CPT/HCPCS: 93005; 99285; 86900; 86901; 36415 ×2; 82553; 36430; 86850; 82550; 83735; 84100; 84443; 85025; 80048; 80053; 81001; 84484; 86920; 83880; 71045; 93010; G0378 ×2; P9016 ×2; A9270 ×4; J1940; J7050